=== PATIENT | female | born 1965 | race Caucasian/White ===

== ENCOUNTER 2021-06-15 02:42 | Inpatient (IN) ==
--- NOTE | 2021-06-15 02:56 | DR.SOBA ---
HPI Time Seen Time Seen by Provider: 06/15/21 02:56 Complaints Chief Complaint Doctors Comments: 56 y/o female brought in via EMS for dyspnea. Had a choking episode few days ago, while eating a nut. [place] it went down her windpipe. Having worsening dyspnea tonight. + coughing. + chest pain - sharp, le ft anterior chest, constant, does not radiate. Worse with coughing, moving. Having low grade temp. + h/o COPD. COVID-19 Coronavirus risk:travel/contact w/high risk person: No Has patient experienced Coronavirus symptoms: Yes Coronavirus symptoms experienced: Fever, Coughing and Shortness of Breath Source History Provided: Patient and Family Member PMH PMH Past Medical History: COPD, Diabetes, Dyslipidemia and Hypertension Past Medical History Comment: RLS Surgical History: Cholecystectomy Family History History of Family Medical Conditions: No Social History Does patient currently use any type of tobacco product: No Have you used tobacco products in the last 12 months: No Does any household member use tobacco: No Do you use any recreational Drugs:: No Travel Risk Coronavirus risk:travel/contact w/high risk person: No Has patient experienced Coronavirus symptoms: Yes Coronavirus symptoms experienced: Fever, Coughing and Shortness of Breath ROS Review of Systems Constitutional: Chills, Fever and Weakness Eyes: No Symptoms Reported ENTM: No Symptoms Reported Respiratoy: Non-Productive Cough and Short of Breath Cardiovascular: Chest Pain Gastrointestinal/Abdominal: No Symptoms Reported Genitourinary: No Symptoms Reported Neurological: Weakness Musculoskeletal: No Symptoms Reported Integumentary: No Symptoms Reported Hematologic/Lymphatic: No Symptoms Reported Psychiatric: No Symptoms Reported All Other Systems: Reviewed and Negative PE Vital Signs Vitals: Temperature 98.7 F Pulse Rate [Right Brachial] 108 Pulse Rate [Left Brachial] 93 Pulse Rate 110 Respiratory Rate 17 Blood Pressure [Right Arm] 165/74 Blood Pressure [Left Arm] 130/71 Blood Pressure 192/116 O2 Sat by Pulse Oximetry 94 General Limitations: No Limitations General Appearance: Alert and In Distress (appears uncomfortable.) Head Head Exam: Normal Inspection Eyes Eye exam: Normal Appearance, PERRL and EOMI ENT ENT Exam: Normal Exam Neck Neck Exam: Normal Inspection Chest Chest Inspection: Tenderness (left anterior chest wall) Respiratory Respiratory Exam: Normal Lung Sounds Bilat and Respiratory Distress Respiratory Exam: Bilateral: Clear to Auscultation Cardiovascular Cardiovascular Exam: Regular Rate, Normal Rhythm and Normal Heart Sounds Abdominal Exam Abdominal Exam: Normal Inspection, Normal Bowel Sounds, Soft and Tenderness (left side) Extremities Extremities Exam: Normal Inspection and Full ROM; negative Edema Neurologic Neurological Exam: Alert, Oriented X3 and CN II-XII Intact; negative Motor Sensory Deficit Psychiatric Psychiatric Exam: Anxious Skin Skin Exam: Warm and Dry MDM Differential Diagnosis Differential Diagnosis: CHF, COPD, Hypertensive Emergency, Mycardial Infarction, Pneumonia and Pulmonary embolism Differential Diagnosis Comment:: aspiration pneumonia COURSE Treatment Treatment: 56 y/o female with COPD presents with respiratory distress, chest pain and elevated BP. + fever. Did choke while eating nuts few days ago. W/u initiated. Pt very difficult IV access. Respiratory obtained ABG - + hypoxia, no significant O2 retention. CXR - concerning for LLL pneumonia, pt is hurting on the left side of her chest. RNs unable to get IV. Central line placement attempted by me, R femoral (0 for 2), L femoral (0 for 2). Pt given IM Rocephin to start antibiotic coverage. Will give duoneb treatment. Will consult with surgery, Dr Davies, for line placement, pt interested in port a cath placement. Recommend admission for further treatment of her pneumonia/COPD. [id number] - RN able to get a line. Will add azithromycin 500 mg IV, solu-medrol 125 mg IV. ROR Labs Reviewed Laboratory Results Reviewed?: Yes Result Diagrams: 06/16/21 05:10 06/16/21 05:10 Laboratory: 06/15/21 15:45 Blood Blood Culture - Preliminary 06/15/21 15:35 Blood Blood Culture - Preliminary WBC 15.7 X10^3/uL (3.6-10.0) H 06/16/21 05:10 RBC 3.98 X10^6/uL (3.5-5.4) 06/16/21 05:10 Hgb 12.1 g/dL (12.0-16.0) 06/16/21 05:10 Hct 35.4 % (36.0-47.0) L 06/16/21 05:10 MCV 88.8 fL (80.0-100.0) 06/16/21 05:10 MCH 30.4 pg (27.0-34.0) 06/16/21 05:10 MCHC 34.2 g/dL (33.0-35.0) 06/16/21 05:10 RDW 13.4 % (11.6-16.5) 06/16/21 05:10 Plt Count 214 X10^3/uL (150.0-450.0) 06/16/21 05:10 MPV 8.5 fL (7.4-11.0) 06/16/21 05:10 Neut % (Auto) 73.1 % (42.0-75.0) 06/16/21 05:10 Lymph % (Auto) 16.5 % (21.0-51.0) L 06/16/21 05:10 Moody % (Auto) 10.0 % (0.0-13.0) 06/16/21 05:10 Eos % (Auto) 0.1 % (0.9-2.9) L 06/16/21 05:10 Baso % (Auto) 0.3 % (0.2-1.0) 06/16/21 05:10 Neut # (Auto) 11.5 x10^3/uL (2.2-4.8) H 06/16/21 05:10 Lymph # (Auto) 2.6 X10^3/uL (1.3-2.9) 06/16/21 05:10 Moody # (Auto) 1.6 x10^3/uL (0.3-0.8) H 06/16/21 05:10 Eos # (Auto) 0.0 x10^3/uL (0.0-0.2) 06/16/21 05:10 Baso # (Auto) 0.0 X10^3/uL (0.0-0.1) 06/16/21 05:10 Absolute Nucleated RBC 0.0 /100WBC 06/16/21 05:10 Sample Site Lrad 06/15/21 03:10 ABG pH 7.400 (7.35-7.45) 06/15/21 03:10 ABG pCO2 46.0 mmHg (35.0-45.0) H 06/15/21 03:10 ABG pO2 63.0 mmHg (80.0-100.0) L 06/15/21 03:10 ABG HCO3 28.5 mmol/L (22-26) H 06/15/21 03:10 ABG O2 Saturation 92.0 % (90-100) 06/15/21 03:10 ABG Base Excess 3.1 mmol/L (-2.0-2.0) H 06/15/21 03:10 Randall Test Pos 06/15/21 03:10 A-a Gradient 136.0 mmHg 06/15/21 03:10 FiO2 36.0 06/15/21 03:10 Blood Gas Comments Baljeet well ms/mt 06/15/21 03:10 Sodium 132 mmol/L (136-145) L 06/16/21 05:10 Corrected Sodium 135 mmol/L (136-145) L 06/16/21 05:10 Potassium 3.5 mmol/L (3.5-5.1) 06/16/21 05:10 Chloride 98 mmol/L (98-107) 06/16/21 05:10 Carbon Dioxide 28.6 mmol/L (21-32) 06/16/21 05:10 BUN 12 mg/dL (7-18) 06/16/21 05:10 Creatinine 0.64 mg/dL (0.55-1.02) 06/16/21 05:10 Est GFR (MDRD) Af Amer > 60 (>60) 06/16/21 05:10 Est GFR (MDRD) Non-Af > 60 (>60) 06/16/21 05:10 Glucose 242 mg/dL (65-99) H 06/16/21 05:10 POC Glucose (mg/dL) 220 mg/dL (65-99) H 06/16/21 05:13 Calcium 8.9 mg/dL (8.5-10.1) 06/16/21 05:10 Corrected Calcium 10.2 mg/dL (8.5-10.1) H 06/16/21 05:10 Total Bilirubin 0.40 mg/dL (0.2-1.0) 06/16/21 05:10 AST 8 Units/L (15-37) L 06/16/21 05:10 ALT 11 Units/L (12-78) L 06/16/21 05:10 Alkaline Phosphatase 85 Units/L (46-116) 06/16/21 05:10 Creatine Kinase 38 Units/L (26-192) 06/15/21 03:32 CK-MB (CK-2) < 1.0 ng/mL (0-4.0) 06/15/21 03:32 CK/CKMB % Calc 2.6 % (<4) 06/15/21 03:32 Troponin I < 0.02 ng/mL (0-1.5) 06/15/21 03:32 B-Natriuretic Peptide 19.3 pg/mL (0-79) 06/15/21 03:32 Total Protein 7.2 g/dL (6.4-8.2) 06/16/21 05:10 Albumin 2.4 g/dL (3.4-5.0) L 06/16/21 05:10 Globulin 4.8 g/dL (2.5-4.5) H 06/16/21 05:10 Albumin/Globulin Ratio 0.5 Ratio (1.1-2.1) L 06/16/21 05:10 SARS-CoV-2 (PCR) Negative (NEGATIVE) 06/15/21 03:38 Influenza Type A (PCR) Negative (NEGATIVE) 06/15/21 03:38 Influenza Type B (PCR) Negative (NEGATIVE) 06/15/21 03:38 RSV (PCR) Negative (NEGATIVE) 06/15/21 03:38 Other Results Comments: ABG with pH of 7.4, pCO2 46, pO2 63. WBC 13K XRAY XRAY Interpreted by: Radiologist X-ray Results: development of LLL infiltrate EKG Rate: 104 [place]: LAD (-24) Rhythm: ST Block: None Hypertrophy: None ST: Nonsp Opioid Opioid Risk Tool Total: 0 Total Score Risk Category: Low Risk Copyright: Bal WELDON predicting aberrant behaviors Diagnosis Discharge Problem: LLL pneumonia Qualifiers: Pneumonia type: due to unspecified organism Qualified Code(s): J18.9 - Pneumonia, unspecified organism COPD (chronic obstructive pulmonary disease) Qualifiers: COPD type: COPD with acute exacerbation Qualified Code(s): J44.1 - Chronic obstructive pulmonary disease with (acute) exacerbation
[2021-06-15 03:14] LABS: ABG ALLEN TEST POS; ABG BASE EXCESS 3.1 mmol/L (-2.0-2.0); ABG HCO3 28.5 mmol/L (22-26)
[2021-06-15] MEDS ORDERED: TYLENOL 500 MG TAB EXTRA STRENGTH PO ONE ×2 (03:45→03:47)
--- NOTE | 2021-06-15 04:08 | RAD ---
PROCEDURE: Chest X-ray 1 View .HISTORY: Dyspnea.TECHNIQUE: AP view .COMPARISON: 11/23/2016.TECHNICAL QUALITY: Satisfactory .FINDINGS:Heart size upper limits of normal.Mediastinum and hilar regions show no masses or lymphadenopathy .Normal central vascularity .Some increased density left lung base could represent pneumonia. Remainder of the lung portillo are clear with no pleural fluid.No acute bony abnormality .IMPRESSION:1. Possible pneumonia left base and follow-up films may be helpful.2. Heart size upper limits of normal.Electronically signed by: Oscar Ospina (Jun 15, 2021 04:07:20)
[2021-06-15 04:17] LABS: BASOPHILS # (AUTO) 0.1 X10^3/uL (0.0-0.1); BASOPHILS % (AUTO) 0.5 % (0.2-1.0); EOSINOPHILS # (AUTO) 0.2 x10^3/uL (0.0-0.2); EOSINOPHILS % (AUTO) 1.4 % (0.9-2.9); HEMOGLOBIN 13.8 g/dL (12.0-16.0); LYMPHOCYTES # (AUTO) 2.3 X10^3/uL (1.3-2.9); LYMPHOCYTES % (AUTO) 16.6 % (21.0-51.0); MEAN CORPUSCULAR HEMOGLOBIN 30.6 pg (27.0-34.0); MEAN CORPUSCULAR HGB CONC 34.4 g/dL (33.0-35.0); MEAN PLATELET VOLUME 8.6 fL (7.4-11.0); MONOCYTES # (AUTO) 1.1 x10^3/uL (0.3-0.8); MONOCYTES % (AUTO) 8.2 % (0.0-13.0); NEUTROPHILS % (AUTO) 73.3 % (42.0-75.0); PLATELET COUNT 236 X10^3/uL (150.0-450.0); RED CELL DISTRIBUTION WIDTH 13.3 % (11.6-16.5); WHITE BLOOD COUNT 13.7 X10^3/uL (3.6-10.0)
[2021-06-15 04:53] LABS: ALANINE AMINOTRANSFERASE 14 Units/L (12-78); ALBUMIN 3.2 g/dL (3.4-5.0); ALKALINE PHOSPHATASE 121 Units/L (46-116); ASPARTATE AMINO TRANSFERASE 19 Units/L (15-37); BLOOD UREA NITROGEN 10 mg/dL (7-18); CALCIUM 8.8 mg/dL (8.5-10.1); CARBON DIOXIDE 26.7 mmol/L (21-32); CHLORIDE 99 mmol/L (98-107); CKMB % 2.6 % (<4); COR CA(FOR HYPOALB) 9.4 mg/dL (8.5-10.1); COR NA(FOR HYPERGLY) 137 mmol/L (136-145); CREATINE KINASE 38 Units/L (26-192); CREATINE KINASE MB < 1.0 ng/mL (0-4.0); CREATININE 0.44 mg/dL (0.55-1.02); SODIUM 133 mmol/L (136-145); TOTAL PROTEIN 7.6 g/dL (6.4-8.2); eGFR NON BLACK RACES > 60 (>60)
[2021-06-15] MEDS ORDERED: ROCEPHIN VIAL 1 GRAM IM ONE (06:29)
[2021-06-15] MEDS ORDERED: ROCEPHIN VIAL 1 GRAM ONE (06:30)
[2021-06-15] MEDS ORDERED: XYLOCAINE 1 % (PLAIN) ONE (06:30)
[2021-06-15] MEDS ORDERED: DUONEB 0.5 MG/3 MG (3 mL) NEB ONE (06:57)
[2021-06-15] MEDS ORDERED: ZITHROMAX INJ 500 MG VIAL 500 MG in NS 250 ML IV 250 ML IV SCH ×2 (07:33→08:14)
[2021-06-15] MEDS ORDERED: ZITHROMAX INJ 500 MG VIAL IV ONE (07:48)
[2021-06-15] MEDS ORDERED: NS 250 ML IV 250 ML IV ONE ×2 (07:48→07:54)
[2021-06-15] MEDS ORDERED: SOLU-Medrol 125 MG VIAL IVP ONE (07:57)
[2021-06-15] MEDS ORDERED: SOLU-Medrol 125 MG VIAL ONE (08:08)
[2021-06-15] MEDS ORDERED: MORPHINE SULFATE INJ 4 MG IVP PRN (08:14)
[2021-06-15] MEDS ORDERED: DUONEB 0.5 MG/3 MG (3 mL) NEB SCH (09:00)
[2021-06-15] MEDS ORDERED: ZANAFLEX PO PRN (09:58)
[2021-06-15] MEDS ORDERED: ASPIRIN EC 81 MG PO SCH (09:58)
[2021-06-15] MEDS ORDERED: PRAVACHOL PO SCH (09:58)
[2021-06-15] MEDS ORDERED: LACOSAMIDE 100 MG PO SCH (09:58)
[2021-06-15] MEDS ORDERED: AMARYL TAB 4 MG PO SCH (09:58)
[2021-06-15] MEDS ORDERED: KEPPRA TAB 500 MG PO SCH (09:58)
[2021-06-15] MEDS ORDERED: TOPROL XL PO SCH (09:58)
[2021-06-15] MEDS ORDERED: NEURONTIN TAB 600 MG PO SCH (09:58)
[2021-06-15] MEDS ORDERED: NITROSTAT SL PRN (10:07)
[2021-06-15] MEDS: LACOSAMIDE 100 MG PO SCH ×2 (11:14→20:48)
[2021-06-15] MEDS: AMARYL TAB 4 MG PO SCH ×2 (11:15→20:48)
[2021-06-15] MEDS: ASPIRIN EC 81 MG PO SCH (11:15)
[2021-06-15] MEDS: FORTAZ or TAZICEF VIAL INJ 1 G in NS 100 ML IV + SPIKE MINIBAG* 100 ML IV SCH ×3 (11:16→21:00)
[2021-06-15] MEDS: DILANTIN CAP 100 MG EXT REL PO SCH ×3 (11:16→21:00)
[2021-06-15] MEDS: NEURONTIN TAB 600 MG PO SCH ×2 (11:16→20:50)
[2021-06-15] MEDS: KEPPRA TAB 500 MG PO SCH ×2 (11:16→20:51)
[2021-06-15] MEDS: LEVAQUIN PREMIX IV 500 MG 500 MG/100 ML BAG IV SCH (11:16)
[2021-06-15] MEDS: PRAVACHOL PO SCH (11:17)
[2021-06-15] MEDS: TOPROL XL PO SCH ×2 (11:17→20:49)
--- NOTE | 2021-06-15 11:50 | RAD ---
CHEST, 1 VIEWHISTORY: Central line placementStudy: Single view of the chest.Comparison: 06/15/2021Findings:No change in the appearance of cardiopulmonary structures. A left central catheter terminates over the expected area of the SVC.IMPRESSION:1.No change in the appearance of cardiopulmonary structures.2. A left central catheter terminating over the expected area of the SVC.Electronically signed by: MONY BUENO (Jun 15, 2021 11:49:02)
[2021-06-15] MEDS: NovoLIN R (or HumuLIN R) SUBCUT PRN ×3 (12:24→20:54)
--- NOTE | 2021-06-15 12:27 | DR.OPNOTE ---
OP NOTE Pre-Op Diagnosis: Bronchopneumonia, need for central venous access Post-Op Diagnosis: same Procedure Date Date Of Procedure: 06/15/21 Procedure: Th e patient was placed in Trendelenburg position after appropriate consent was given for placement of a left subclavian vein triple Lumen catheter. I discussed the risk of bleeding, infection, and pneumothorax with the patient and her family and they agree to proceed. The left chest wall prepped and draped in sterile fashion. The skin underlying the left clavicle was infiltrated with 1% Xylocaine . Xylocaine also also used to infiltrate in the left chest wall. 16 gauge needle used to pu ncture the left subclavian vein and a guide wire place without difficulty. Incision made over the guide wire in the dilator placed over the guide wire. Triple lumen catheter the placed over the guide wire and the guide wire removed. The catheter had all the ports aspirated of blood and flushed with heparinized saline. Bio-patch placed over the catheter as it exited from the skin. It was secured to the skin with interrupted silk sutures . Post-procedure chest x-ray showed good placement of the central venous line and no pneumothorax. Type of Anesthesia: Local Anesthesia Comment: 6 cc of 1 % Xylocaine Findings: as above EBL: minimal Complications:: ryan Needle/Sponge Count:: correct Disposition/Condition: Pt. tolerated procedure without difficulty.
[2021-06-15 12:40] VITALS: BMI 37.8
[2021-06-15] MEDS: DUONEB 0.5 MG/3 MG (3 mL) NEB SCH ×3 (13:04→20:25)
[2021-06-15] MEDS ORDERED: DILANTIN CAP 100 MG EXT REL PO SCH (14:00)
[2021-06-15] MEDS ORDERED: REQUIP PO SCH (14:00)
[2021-06-15] MEDS: REQUIP PO SCH ×2 (14:27→21:00)
[2021-06-15] MEDS: SOLU-Medrol 40 MG VIAL IVP SCH ×2 (14:27→21:00)
--- NOTE | 2021-06-15 15:29 | DR.H&P ---
H&P - History & Physical for Day of: H&P Date: 06/15/21 - Chief Complaint Chief Complaint: COUGH, SHORT OF BREATH, FEVER, CHEST PAIN - History of Present Illness History of Present Illness: IS A 56 YEAR OLD WHITE FEMALE. SHE PRESENTED TO THE ER WITH REPORTS OF SHORTNESS OF BREATH, COUGH, FEVER, AND CHEST PAIN. SHE DESCRIBES PAIN SHARP, CONSTANT, AND RATES IT A 4/10. SHE ALSO ADMITS TO [place] ON A PECAN TWO DAYS AGO. HER PMH INCLUDES: COPD, DIABETES, DYSLIPIDEMIA, HTN, AND RLS. ON ARRIVAL TO THE ER, VITALS WERE 102.5-109-30-94%-192/116. LABS WERE OBTAINED. ABNORMAL LAB VALUES INCLUDE THE FOLLOWING: WBC 13.7, SODIUM 133, CREATININE 0.44, GLUCOSE 254, ALK PHOS 121, ALBUMIN 3.2. AN ABG WAS OBTAINED AND REVEALED: PH 7.400, PC02 46, P02 63, HC03 28.5, 02 SAT 92, BASE EXCESS 3.1, FI02 36. COVID, INFLUENZA, AND RSV NEGATIVE. BLOOD AND SPUTUM CULTURES WERE SET UP. A CHEST XRAY WAS OBTAINED AND REVEALED: 1. Possible pneumonia left base. 2. Heart size upper limits of normal. AN EKGS WAS OBTAINED AND REVEALED: SINUS TACHYCARDIA WITH HR 104. IN THE ER, SHE WAS GIVEN TYLENOL 1G PO X 1, ROCEPHIN 1G IM X 1, DUONEB X 1 DOSE, ZITHROMAX 500MG IV X 1 DOSE, SOLU-MEDROL 125MG IV X 1. SHE WAS ADMITTED TO THE HOSPITAL FOR FURTHER EVALUATION AND TREATMENT OF LLL PNEUMONIA AND COPD EXACERBATION. SHE WAS STARTED ON FORTAZ 1G IV Q8H, LEVAQUIN 500MG IV X 1, SOLU-MEDROL 40MG IV Q8H, DUONEB Q4H, PULMICORT BID, MORPHINE 4MG IV Q4H PRN, OTBS ACHS, HUMULIN R SLIDING SCALE, AND HER HOME MEDICATONS WERE RESUMED. OTHERWISE, WE WILL FOLLOW UP WITH AM LABS AND CHEST XRAY AND CONTINUE TO MONITOR. TIME SPENT ON CLINICAL ASSESSMENT, REVIEWING LABS AND IMAGING, DECISION MAKING, AND DOCUMENTATION WAS GREATER THAN 45 MINUTES. - Past Medical History Past Medical History: Hypertension, Dyslipidemia, Diabetes, COPD Additional Medical History: RLS - Past Surgical History Surgical History: Hysterectomy - Family History Family Medical History: Diabetes Mellitus, Cancer, Coronary Artery Disease - Social History Does patient currently use any type of tobacco product: No Have you used tobacco products in the last 12 months: No Type of Tobacco Use: None Does any household member use tobacco: No Alcohol Use: None Drug Use: None - Medications Home Medications: egg Allergy (Verified 06/15/21 03:36) shellfish derived Allergy (Verified 06/15/21 03:36) CONTINUE taking the following medications aspirin [Aspir-81] 81 mg PO DAILY 06/15/21 [History] cholestyramine-aspartame [Cholestyramine Light] 4 ea PO BID 06/15/21 [History] dulaglutide [Trulicity] 1.5 mg SUBCUT QWEEK 06/15/21 [History] gabapentin 600 mg PO BID 06/15/21 [History] glimepiride 4 mg PO BID 06/15/21 [History] insulin detemir U-100 [Levemir U-100 Insulin] 45 unit SUBCUT PRN PRN 06/15/21 [History] lacosamide [Vimpat] 100 mg PO BID 06/15/21 [History] levetiracetam 1,000 mg PO BID 06/15/21 [History] metoprolol succinate 50 mg PO BID 06/15/21 [History] nitroglycerin 0.3 mg SUBLINGUAL PRN PRN 06/15/21 [History] phenytoin sodium extended 100 mg PO TID 06/15/21 [History] pravastatin 20 mg PO DAILY 06/15/21 [History] ropinirole 0.25 mg PO TID 06/15/21 [History] tizanidine 4 mg PO TID 06/15/21 [History] - Review of Systems Constitutional: Fever, Weakness Eyes: No Symptoms Reported ENT: No Symptoms Reported Respiratory: Cough, Shortness of Breath, SOB with Excertion, Wheezing Cardiovascular: No Symptoms Reported Gastrointestinal: No Symptoms Reported Genitourinary: No Symptoms Reported Musculoskeletal: No Symptoms Reported Skin: No Symptoms Reported Neurological: Weakness - Physical Exam Vital Signs: Temperature 98.9 F Pulse Rate [Right Brachial] 108 Pulse Rate [Left Brachial] 98 Pulse Rate 78 Respiratory Rate 26 Blood Pressure [Right Arm] 168/94 Blood Pressure [Left Arm] 138/72 Blood Pressure 192/116 O2 Sat by Pulse Oximetry 97 Oriented: Normal Eyes: Normal Ear: Normal Nose: Normal Throat: Normal Respiratory: Wheezes Throughout Cardiovascular: Tachycardia : Normal Auscultation: Bowel Sounds: Normal Palpation: Normal Tenderness: Normal Skin: Normal Musculoskeletal: Normal Psychiatric: Normal Mood Description: Calm Affect: Normal Speech Pattern: Clear - Assessment/Plan (1) LLL pneumonia Qualifiers: Pneumonia type: due to unspecified organism Qualified Code(s): J18.9 - Pneumonia, unspecified organism Status: Acute Plan: ADMIT, SUPPLEMENTAL OXYGEN, FORTAZ 1G IV Q8H, LEVAQUIN 500MG IV X 1, SOLU- MEDROL 40MG IV Q8H, DUONEB Q4H, PULMICORT BID, MORPHINE 4MG IV Q4H PRN, OTBS ACHS, HUMULIN R SLIDING SCALE, RESUME HOME MEDS (2) COPD (chronic obstructive pulmonary disease) Qualifiers: COPD type: COPD with acute exacerbation Qualified Code(s): J44.1 - Chronic obstructive pulmonary disease with (acute) exacerbation Status: Acute - Allergies Allergies/Adverse Reactions: Allergies Allergy/AdvReac Type Severity Reaction Status Date / Time egg Allergy Verified 06/15/21 03:36 shellfish derived Allergy Verified 06/15/21 03:36
[2021-06-15] MEDS ORDERED: SNACK - Diabetic Appropriate PO SCH (20:00)
[2021-06-15] MEDS: PULMICORT NEB TX 0.5 MG NEB SCH (20:25)
[2021-06-15] MEDS: SNACK - Diabetic Appropriate PO SCH (20:47)
[2021-06-15] MEDS: QUESTRAN POWDER FOR ORAL SUSP PO SCH (20:57)
[2021-06-15] MEDS: TYLENOL 325 MG TAB PO PRN (22:13)
[2021-06-16] MEDS: DUONEB 0.5 MG/3 MG (3 mL) NEB SCH ×6 (00:53→20:42)
--- NOTE | 2021-06-16 05:37 | RAD ---
PROCEDURE: Chest X-ray 1 View .HISTORY: Dyspnea.TECHNIQUE: AP view .COMPARISON: 06/15/2021.TECHNICAL QUALITY: Satisfactory .FINDINGS:Unchanged cardio mediastinal silhouette and normal central vascularity.Consolidation left mid lower lung field consistent with pneumonia similar to increased compared to previous study. Right lung portillo predominantly clear with no pleural fluid or consolidation.IMPRESSION:Unchanged increased left basilar pneumonia.Electronically signed by: Oscar Ospina (Jun 16, 2021 05:36:24)
[2021-06-16] MEDS: FORTAZ or TAZICEF VIAL INJ 1 G in NS 100 ML IV + SPIKE MINIBAG* 100 ML IV SCH ×3 (05:44→21:34)
[2021-06-16] MEDS: DILANTIN CAP 100 MG EXT REL PO SCH ×3 (05:44→21:34)
[2021-06-16] MEDS: NovoLIN R (or HumuLIN R) SUBCUT PRN ×4 (05:45→21:35)
[2021-06-16] MEDS: SOLU-Medrol 40 MG VIAL IVP SCH ×3 (05:45→21:35)
[2021-06-16] MEDS: REQUIP PO SCH ×3 (05:45→21:34)
[2021-06-16 06:12] LABS: BASOPHILS % (AUTO) 0.3 % (0.2-1.0); EOSINOPHILS % (AUTO) 0.1 % (0.9-2.9); HEMATOCRIT 35.4 % (36.0-47.0); HEMOGLOBIN 12.1 g/dL (12.0-16.0); LYMPHOCYTES # (AUTO) 2.6 X10^3/uL (1.3-2.9); LYMPHOCYTES % (AUTO) 16.5 % (21.0-51.0); MEAN CORPUSCULAR HEMOGLOBIN 30.4 pg (27.0-34.0); MEAN CORPUSCULAR HGB CONC 34.2 g/dL (33.0-35.0); MEAN CORPUSCULAR VOLUME 88.8 fL (80.0-100.0); MEAN PLATELET VOLUME 8.5 fL (7.4-11.0); MONOCYTES # (AUTO) 1.6 x10^3/uL (0.3-0.8); NEUTROPHILS # (AUTO) 11.5 x10^3/uL (2.2-4.8); NEUTROPHILS % (AUTO) 73.1 % (42.0-75.0); PLATELET COUNT 214 X10^3/uL (150.0-450.0); RED BLOOD COUNT 3.98 X10^6/uL (3.5-5.4); RED CELL DISTRIBUTION WIDTH 13.4 % (11.6-16.5); WHITE BLOOD COUNT 15.7 X10^3/uL (3.6-10.0)
[2021-06-16 06:25] LABS: ALANINE AMINOTRANSFERASE 11 Units/L (12-78); ALBUMIN 2.4 g/dL (3.4-5.0); ALKALINE PHOSPHATASE 85 Units/L (46-116); ASPARTATE AMINO TRANSFERASE 8 Units/L (15-37); BLOOD UREA NITROGEN 12 mg/dL (7-18); CALCIUM 8.9 mg/dL (8.5-10.1); CARBON DIOXIDE 28.6 mmol/L (21-32); CHLORIDE 98 mmol/L (98-107); COR CA(FOR HYPOALB) 10.2 mg/dL (8.5-10.1); COR NA(FOR HYPERGLY) 135 mmol/L (136-145); CREATININE 0.64 mg/dL (0.55-1.02); SODIUM 132 mmol/L (136-145); TOTAL PROTEIN 7.2 g/dL (6.4-8.2); eGFR NON BLACK RACES > 60 (>60)
[2021-06-16] MEDS: PULMICORT NEB TX 0.5 MG NEB SCH ×2 (08:55→20:45)
[2021-06-16] MEDS: LEVAQUIN PREMIX IV 500 MG 500 MG/100 ML BAG IV SCH (09:05)
[2021-06-16] MEDS: PRAVACHOL PO SCH (09:05)
[2021-06-16] MEDS: TOPROL XL PO SCH ×2 (09:06→21:34)
[2021-06-16] MEDS: ASPIRIN EC 81 MG PO SCH (09:06)
[2021-06-16] MEDS: NEURONTIN TAB 600 MG PO SCH ×2 (09:06→21:33)
[2021-06-16] MEDS: KEPPRA TAB 500 MG PO SCH ×2 (09:06→21:33)
[2021-06-16] MEDS: AMARYL TAB 4 MG PO SCH ×2 (09:06→21:33)
[2021-06-16] MEDS: LACOSAMIDE 100 MG PO SCH ×2 (09:07→21:33)
[2021-06-16] MEDS: QUESTRAN POWDER FOR ORAL SUSP PO SCH ×2 (09:13→21:34)
[2021-06-16] MEDS: LOVENOX INJ 40 MG SYR SC SCH (11:43)
[2021-06-16] MEDS: TYLENOL 325 MG TAB PO PRN (11:48)
[2021-06-16] MEDS: SNACK - Diabetic Appropriate PO SCH (21:29)
[2021-06-16] MEDS: ELAVIL PO SCH (21:33)
[2021-06-16] MEDS: ZANAFLEX PO PRN (22:30)
[2021-06-17] MEDS: DUONEB 0.5 MG/3 MG (3 mL) NEB SCH ×6 (00:25→20:07)
[2021-06-17] MEDS: DILANTIN CAP 100 MG EXT REL PO SCH ×3 (05:50→21:10)
[2021-06-17] MEDS: SOLU-Medrol 40 MG VIAL IVP SCH ×3 (05:50→21:10)
[2021-06-17] MEDS: FORTAZ or TAZICEF VIAL INJ 1 G in NS 100 ML IV + SPIKE MINIBAG* 100 ML IV SCH ×3 (05:50→21:10)
[2021-06-17] MEDS: REQUIP PO SCH ×3 (05:50→21:10)
[2021-06-17] MEDS: NovoLIN R (or HumuLIN R) SUBCUT PRN ×3 (05:51→20:24)
[2021-06-17 06:45] LABS: BASOPHILS % (AUTO) 0.3 % (0.2-1.0); EOSINOPHILS % (AUTO) 0.1 % (0.9-2.9); HEMATOCRIT 33.1 % (36.0-47.0); HEMOGLOBIN 11.1 g/dL (12.0-16.0); LYMPHOCYTES # (AUTO) 2.4 X10^3/uL (1.3-2.9); LYMPHOCYTES % (AUTO) 17.4 % (21.0-51.0); MEAN CORPUSCULAR HEMOGLOBIN 30.2 pg (27.0-34.0); MEAN CORPUSCULAR HGB CONC 33.7 g/dL (33.0-35.0); MEAN CORPUSCULAR VOLUME 89.7 fL (80.0-100.0); MEAN PLATELET VOLUME 8.4 fL (7.4-11.0); MONOCYTES # (AUTO) 1.3 x10^3/uL (0.3-0.8); MONOCYTES % (AUTO) 9.1 % (0.0-13.0); NEUTROPHILS % (AUTO) 73.1 % (42.0-75.0); PLATELET COUNT 230 X10^3/uL (150.0-450.0); RED BLOOD COUNT 3.69 X10^6/uL (3.5-5.4); RED CELL DISTRIBUTION WIDTH 13.2 % (11.6-16.5); WHITE BLOOD COUNT 13.7 X10^3/uL (3.6-10.0)
[2021-06-17 07:06] LABS: ALANINE AMINOTRANSFERASE 11 Units/L (12-78); ALBUMIN 2.3 g/dL (3.4-5.0); ALKALINE PHOSPHATASE 87 Units/L (46-116); ASPARTATE AMINO TRANSFERASE 16 Units/L (15-37); BLOOD UREA NITROGEN 12 mg/dL (7-18); CALCIUM 8.9 mg/dL (8.5-10.1); CARBON DIOXIDE 30.1 mmol/L (21-32); CHLORIDE 99 mmol/L (98-107); COR CA(FOR HYPOALB) 10.3 mg/dL (8.5-10.1); COR NA(FOR HYPERGLY) 139 mmol/L (136-145); CREATININE 0.67 mg/dL (0.55-1.02); SODIUM 136 mmol/L (136-145); TOTAL PROTEIN 7.3 g/dL (6.4-8.2); eGFR NON BLACK RACES > 60 (>60)
--- NOTE | 2021-06-17 07:13 | RAD ---
HISTORYSOBSTUDYCHEST, 1 GEUAFYYOLGNZYD01/04/2022.TECHNIQUEAP view of the chestFINDINGSLeft subclavian central line is in good position. Worsened opacification of the left dion thorax with ipsilateral shift of the heart. Mild right base hazy opacity appears similar to prior. No pneumothorax.IMPRESSIONWorsened left dion thorax opacification with an atelectatic component given mild ipsilateral shift of the heart.Electronically signed by: Nick Lee (Jun 17, 2021 07:11:36)
[2021-06-17] MEDS: PULMICORT NEB TX 0.5 MG NEB SCH ×2 (08:50→20:07)
[2021-06-17] MEDS: LEVAQUIN PREMIX IV 500 MG 500 MG/100 ML BAG IV SCH (09:24)
[2021-06-17] MEDS: TOPROL XL PO SCH ×2 (09:26→20:23)
[2021-06-17] MEDS: ASPIRIN EC 81 MG PO SCH (09:26)
[2021-06-17] MEDS: PRAVACHOL PO SCH (09:27)
[2021-06-17] MEDS: AMARYL TAB 4 MG PO SCH ×2 (09:27→20:22)
[2021-06-17] MEDS: NEURONTIN TAB 600 MG PO SCH ×2 (09:27→20:23)
[2021-06-17] MEDS: KEPPRA TAB 500 MG PO SCH ×2 (09:28→20:22)
[2021-06-17] MEDS: LACOSAMIDE 100 MG PO SCH ×2 (09:42→20:22)
[2021-06-17] MEDS: LOVENOX INJ 40 MG SYR SC SCH (09:42)
[2021-06-17] MEDS: QUESTRAN POWDER FOR ORAL SUSP PO SCH ×2 (09:42→20:23)
--- NOTE | 2021-06-17 12:36 | PCM.PROG ---
Progress Note - Progress Note for Day of Date of Exam: 06/16/21 - Subjective Subjective: WAS ADMITTED FOR TREATMENT OF LLL PNEUMONIA AND COPD EXACERBATION. TODAY, SHE IS ALERT AND ORIENTED, LYING IN BED ON MORNING ROUNDS. SHE CONTINUES WITH COMPLAINTS OF SHORTNESS OF BREATH AND COUGH. COUGH HAS BEEN NON-PRODUCTIVE. SHE ALSO REPORTS A DULL HEADACHE THIS MORNING AND THROUGHOUT THE NIGHT. ON EXAMINATION, HEART IS REGULAR IN RATE AND RHYTHM. BILATERAL LUNGS ARE NOTED WITH WHEEZING THROUGHOUT. ABDOMEN IS ROUND, SOFT, AND NON-TENDER WITH NORMAL BOWEL SOUNDS NOTED IN ALL QUADRANTS. HER VITALS THIS MORNING ARE: 99.3-100-22-91%-146/78. SHE HAS HAD FEVER THROUGHOUT THE NIGHT. LABS WERE OBTAINED. ABNORMAL LAB VALUES INCLUDE THE FOLLOWING: WBC 15.7, HCT 35.4, SODIUM 132, GLUCOSE 242, AST 8, ALT 11, ALBUMIN 2.4, GLOBULIN 4.8. BLOOD CULTURES ARE PENDING. CHEST XRAY WAS OBTAINED AND REVEALED: Unchanged increased left basilar pneumonia. SHE IS CURRENTLY RECEIVING FORTAZ 1G IV Q8H, LEVAQUIN 500MG IV X 1, SOLU-MEDROL 40MG IV Q8H, DUONEB Q4H, PULMICORT BID, MORPHINE 4MG IV Q4H PRN, OTBS ACHS, HUMULIN R SLIDING SCALE, AND HER HOME MEDICATONS WERE RESUMED. TODAY, WE WILL ADD AMITRIPTYLINE 25MG PO HS FOR HEADACHES. OTHERWISE, WE WILL CONTINUE WITH CURRENT PLAN OF CARE. WE PLAN TO FOLLOW UP WITH AM LABS AND CHEST XRAY AND CONTINUE TO MONITOR. TIME SPENT ON CLINICAL ASSESSMENT, REVIEWING LABS AND IMAGING, DECISION MAKING, AND DOCUMENTATION GREATER THAN 45 MINUTES. - Past Medical Family Social History Past Med/Fam/Surg Hx: No changes since H&P Allergies: Allergies egg Allergy (Verified 06/15/21 03:36) shellfish derived Allergy (Verified 06/15/21 03:36) - Review of Systems ROS: No change since H&P - Vital Signs and I&O's Vital Signs: Temperature 100.0 F Pulse Rate [Right Brachial] 108 Pulse Rate [Left Brachial] 109 Pulse Rate 102 Respiratory Rate 34 Blood Pressure [Right Arm] 169/97 Blood Pressure [Left Arm] 157/76 Blood Pressure 192/116 O2 Sat by Pulse Oximetry 90 Intake and Output: Intake & Output 06/15/21 06/16/21 06/17/21/06/22 11:59 11:59 11:59 11:59 Intake Total 2050 Balance 2050 - Physical Exam Oriented: Normal Eyes: Normal Ear: Normal Nose: Normal Throat: Normal Respiratory: Diminished, Wheezes Cardiovascular: Normal : Normal Auscultation: Bowel Sounds: Normal Palpation: Normal Tenderness: Normal Skin: Normal Musculoskeletal: Normal Psychiatric: Normal Mood Description: Calm Affect: Normal Speech Pattern: Clear, Appropriate - Laboratory and Diagnostics Result Diagrams: 06/17/21 05:25 06/17/21 05:25 Labs: 06/15/21 15:45 Blood Blood Culture - Preliminary 06/15/21 15:35 Blood Blood Culture - Preliminary Laboratory WBC 13.7 X10^3/uL (3.6-10.0) H 06/17/21 05:25 RBC 3.69 X10^6/uL (3.5-5.4) 06/17/21 05:25 Hgb 11.1 g/dL (12.0-16.0) L 06/17/21 05:25 Hct 33.1 % (36.0-47.0) L 06/17/21 05:25 MCV 89.7 fL (80.0-100.0) 06/17/21 05:25 MCH 30.2 pg (27.0-34.0) 06/17/21 05:25 MCHC 33.7 g/dL (33.0-35.0) 06/17/21 05:25 RDW 13.2 % (11.6-16.5) 06/17/21 05:25 Plt Count 230 X10^3/uL (150.0-450.0) 06/17/21 05:25 MPV 8.4 fL (7.4-11.0) 06/17/21 05:25 Neut % (Auto) 73.1 % (42.0-75.0) 06/17/21 05:25 Lymph % (Auto) 17.4 % (21.0-51.0) L 06/17/21 05:25 [place] % (Auto) 9.1 % (0.0-13.0) 06/17/21 05:25 Eos % (Auto) 0.1 % (0.9-2.9) L 06/17/21 05:25 Baso % (Auto) 0.3 % (0.2-1.0) 06/17/21 05:25 Neut # (Auto) 10.0 x10^3/uL (2.2-4.8) H 06/17/21 05:25 Lymph # (Auto) 2.4 X10^3/uL (1.3-2.9) 06/17/21 05:25 [place] # (Auto) 1.3 x10^3/uL (0.3-0.8) H 06/17/21 05:25 Eos # (Auto) 0.0 x10^3/uL (0.0-0.2) 06/17/21 05:25 Baso # (Auto) 0.0 X10^3/uL (0.0-0.1) 06/17/21 05:25 Absolute Nucleated RBC 0.0 /100WBC 06/17/21 05:25 Sample Site Lrad 06/15/21 03:10 ABG pH 7.400 (7.35-7.45) 06/15/21 03:10 ABG pCO2 46.0 mmHg (35.0-45.0) H 06/15/21 03:10 ABG pO2 63.0 mmHg (80.0-100.0) L 06/15/21 03:10 ABG HCO3 28.5 mmol/L (22-26) H 06/15/21 03:10 ABG O2 Saturation 92.0 % (90-100) 06/15/21 03:10 ABG Base Excess 3.1 mmol/L (-2.0-2.0) H 06/15/21 03:10 Randall Test Pos 06/15/21 03:10 A-a Gradient 136.0 mmHg 06/15/21 03:10 FiO2 36.0 06/15/21 03:10 Blood Gas Comments [facility] well ms/mt 06/15/21 03:10 Sodium 136 mmol/L (136-145) 06/17/21 05:25 Corrected Sodium 139 mmol/L (136-145) 06/17/21 05:25 Potassium 4.2 mmol/L (3.5-5.1) 06/17/21 05:25 Chloride 99 mmol/L (98-107) 06/17/21 05:25 Carbon Dioxide 30.1 mmol/L (21-32) 06/17/21 05:25 BUN 12 mg/dL (7-18) 06/17/21 05:25 Creatinine 0.67 mg/dL (0.55-1.02) 06/17/21 05:25 Est GFR (MDRD) Af Amer > 60 (>60) 06/17/21 05:25 Est GFR (MDRD) Non-Af > 60 (>60) 06/17/21 05:25 Glucose 234 mg/dL (65-99) H 06/17/21 05:25 POC Glucose (mg/dL) 243 mg/dL (65-99) H 06/17/21 11:43 Calcium 8.9 mg/dL (8.5-10.1) 06/17/21 05:25 Corrected Calcium 10.3 mg/dL (8.5-10.1) H 06/17/21 05:25 Total Bilirubin 0.40 mg/dL (0.2-1.0) 06/17/21 05:25 AST 16 Units/L (15-37) 06/17/21 05:25 ALT 11 Units/L (12-78) L 06/17/21 05:25 Alkaline Phosphatase 87 Units/L (46-116) 06/17/21 05:25 Creatine Kinase 38 Units/L (26-192) 06/15/21 03:32 CK-MB (CK-2) < 1.0 ng/mL (0-4.0) 06/15/21 03:32 CK/CKMB % Calc 2.6 % (<4) 06/15/21 03:32 Troponin I < 0.02 ng/mL (0-1.5) 06/15/21 03:32 B-Natriuretic Peptide 17.2 pg/mL (0-79) 06/17/21 05:25 Total Protein 7.3 g/dL (6.4-8.2) 06/17/21 05:25 Albumin 2.3 g/dL (3.4-5.0) L 06/17/21 05:25 Globulin 5.0 g/dL (2.5-4.5) H 06/17/21 05:25 Albumin/Globulin Ratio 0.5 Ratio (1.1-2.1) L 06/17/21 05:25 SARS-CoV-2 (PCR) Negative (NEGATIVE) 06/15/21 03:38 Influenza Type A (PCR) Negative (NEGATIVE) 06/15/21 03:38 Influenza Type B (PCR) Negative (NEGATIVE) 06/15/21 03:38 RSV (PCR) Negative (NEGATIVE) 06/15/21 03:38 - Plan (1) LLL pneumonia Status: Acute Qualifiers: Pneumonia type: due to unspecified organism Qualified Code(s): J18.9 - Pneumonia, unspecified organism Plan: SUPPLEMENTAL OXYGEN, FORTAZ 1G IV Q8H, LEVAQUIN 500MG IV X 1, SOLU-MEDROL 40MG IV Q8H, DUONEB Q4H, PULMICORT BID, MORPHINE 4MG IV Q4H PRN, OTBS ACHS, HUMULIN R SLIDING SCALE, RESUME HOME MEDS (2) COPD (chronic obstructive pulmonary disease) Status: Acute Qualifiers: COPD type: COPD with acute exacerbation Qualified Code(s): J44.1 - Chronic obstructive pulmonary disease with (acute) exacerbation (3) Headache Status: Acute Qualifiers: Headache type: unspecified Headache chronicity pattern: chronic headache
--- NOTE | 2021-06-17 12:47 | PCM.PROG ---
Progress Note - Progress Note for Day of Date of Exam: 06/17/21 - Subjective Subjective: WAS ADMITTED FOR TREATMENT OF LLL PNEUMONIA AND COPD EXACERBATION. TODAY, SHE IS ALERT AND ORIENTED, LYING IN BED ON MORNING ROUNDS. SHE CONTINUES WITH COMPLAINTS OF SHORTNESS OF BREATH AND COUGH. COUGH HAS BEEN NON-PRODUCTIVE. SHE DOES ADMIT TO SLIGHT IMPROVEMENT IN SYMPTOMS SINCE ADMISSION. ON EXAMINATION, HEART IS REGULAR IN RATE AND RHYTHM. BILATERAL LUNGS ARE NOTED WITH WHEEZING THROUGHOUT. ABDOMEN IS ROUND, SOFT, AND NON-TENDER WITH NORMAL BOWEL SOUNDS NOTED IN ALL QUADRANTS. HER VITALS THIS MORNING ARE: 100.0-109-34-89%-169/97. SHE HAS HAD FEVER THROUGHOUT THE NIGHT. LABS WERE OBTAINED. ABNORMAL LAB VALUES INCLUDE THE FOLLOWING: WBC 13.7, HGB 11.1, HCT 33.1, GLUCOSE 234, ALT 11, ALBUMIN 2.3, GLOBULIN 5.0. BLOOD CULTURES ARE PENDING. CHEST XRAY WAS OBTAINED AND REVEALED: Worsened left dion thorax opacification with an atelectatic component given mild ipsilateral shift of the heart. SHE IS CURRENTLY RECEIVING FORTAZ 1G IV Q8H, LEVAQUIN 500MG IV X 1, SOLU-MEDROL 40MG IV Q8H, DUONEB Q4H, PULMICORT BID, MORPHINE 4MG IV Q4H PRN, OTBS ACHS, HUMULIN R SLIDING SCALE, AMITRIPTYLINE 25MG PO HS, AND HER HOME MEDICATONS WERE RESUMED. WE WILL CONTINUE WITH CURRENT PLAN OF CARE TODAY. OTHERWISE, WE PLAN TO FOLLOW UP WITH AM LABS AND CHEST XRAY AND CONTINUE TO MONITOR. TIME SPENT ON CLINICAL ASSESSMENT, REVIEWING LABS AND IMAGING, DECISION MAKING, AND DOCUMENTATION GREATER THAN 45 MINUTES. - Past Medical Family Social History Past Med/Fam/Surg Hx: No changes since H&P Allergies: Allergies egg Allergy (Verified 06/15/21 03:36) shellfish derived Allergy (Verified 06/15/21 03:36) - Review of Systems ROS: No change since H&P - Vital Signs and I&O's Vital Signs: Temperature 99.7 F Pulse Rate [Right Brachial] 108 Pulse Rate [Left Brachial] 115 Pulse Rate 102 Respiratory Rate 36 Blood Pressure [Right Arm] 168/81 Blood Pressure [Left Arm] 157/76 Blood Pressure 192/116 O2 Sat by Pulse Oximetry 95 Intake and Output: Intake & Output 06/15/21 06/16/21 06/17/21 06/18/21 11:59 11:59 11:59 11:59 Intake Total 2050 Balance 2050 - Physical Exam Oriented: Normal Eyes: Normal Ear: Normal Nose: Normal Throat: Normal Respiratory: Diminished, Wheezes Cardiovascular: Normal : Normal Auscultation: Bowel Sounds: Normal Tenderness: Normal Skin: Normal Musculoskeletal: Normal Psychiatric: Normal Mood Description: Calm Affect: Normal Speech Pattern: Clear, Appropriate - Laboratory and Diagnostics Result Diagrams: 06/17/21 05:25 06/17/21 05:25 Labs: 06/15/21 15:45 Blood Blood Culture - Preliminary 06/15/21 15:35 Blood Blood Culture - Preliminary Laboratory WBC 13.7 X10^3/uL (3.6-10.0) H 06/17/21 05:25 RBC 3.69 X10^6/uL (3.5-5.4) 06/17/21 05:25 Hgb 11.1 g/dL (12.0-16.0) L 06/17/21 05:25 Hct 33.1 % (36.0-47.0) L 06/17/21 05:25 MCV 89.7 fL (80.0-100.0) 06/17/21 05:25 MCH 30.2 pg (27.0-34.0) 06/17/21 05:25 MCHC 33.7 g/dL (33.0-35.0) 06/17/21 05:25 RDW 13.2 % (11.6-16.5) 06/17/21 05:25 Plt Count 230 X10^3/uL (150.0-450.0) 06/17/21 05:25 MPV 8.4 fL (7.4-11.0) 06/17/21 05:25 Neut % (Auto) 73.1 % (42.0-75.0) 06/17/21 05:25 Lymph % (Auto) 17.4 % (21.0-51.0) L 06/17/21 05:25 [place] % (Auto) 9.1 % (0.0-13.0) 06/17/21 05:25 Eos % (Auto) 0.1 % (0.9-2.9) L 06/17/21 05:25 Baso % (Auto) 0.3 % (0.2-1.0) 06/17/21 05:25 Neut # (Auto) 10.0 x10^3/uL (2.2-4.8) H 06/17/21 05:25 Lymph # (Auto) 2.4 X10^3/uL (1.3-2.9) 06/17/21 05:25 [place] # (Auto) 1.3 x10^3/uL (0.3-0.8) H 06/17/21 05:25 Eos # (Auto) 0.0 x10^3/uL (0.0-0.2) 06/17/21 05:25 Baso # (Auto) 0.0 X10^3/uL (0.0-0.1) 06/17/21 05:25 Absolute Nucleated RBC 0.0 /100WBC 06/17/21 05:25 Sample Site Lrad 06/15/21 03:10 ABG pH 7.400 (7.35-7.45) 06/15/21 03:10 ABG pCO2 46.0 mmHg (35.0-45.0) H 06/15/21 03:10 ABG pO2 63.0 mmHg (80.0-100.0) L 06/15/21 03:10 ABG HCO3 28.5 mmol/L (22-26) H 06/15/21 03:10 ABG O2 Saturation 92.0 % (90-100) 06/15/21 03:10 ABG Base Excess 3.1 mmol/L (-2.0-2.0) H 06/15/21 03:10 Randall Test Pos 06/15/21 03:10 A-a Gradient 136.0 mmHg 06/15/21 03:10 FiO2 36.0 06/15/21 03:10 Blood Gas Comments [facility] well ms/mt 06/15/21 03:10 Sodium 136 mmol/L (136-145) 06/17/21 05:25 Corrected Sodium 139 mmol/L (136-145) 06/17/21 05:25 Potassium 4.2 mmol/L (3.5-5.1) 06/17/21 05:25 Chloride 99 mmol/L (98-107) 06/17/21 05:25 Carbon Dioxide 30.1 mmol/L (21-32) 06/17/21 05:25 BUN 12 mg/dL (7-18) 06/17/21 05:25 Creatinine 0.67 mg/dL (0.55-1.02) 06/17/21 05:25 Est GFR (MDRD) Af Amer > 60 (>60) 06/17/21 05:25 Est GFR (MDRD) Non-Af > 60 (>60) 06/17/21 05:25 Glucose 234 mg/dL (65-99) H 06/17/21 05:25 POC Glucose (mg/dL) 243 mg/dL (65-99) H 06/17/21 11:43 Calcium 8.9 mg/dL (8.5-10.1) 06/17/21 05:25 Corrected Calcium 10.3 mg/dL (8.5-10.1) H 06/17/21 05:25 Total Bilirubin 0.40 mg/dL (0.2-1.0) 06/17/21 05:25 AST 16 Units/L (15-37) 06/17/21 05:25 ALT 11 Units/L (12-78) L 06/17/21 05:25 Alkaline Phosphatase 87 Units/L (46-116) 06/17/21 05:25 Creatine Kinase 38 Units/L (26-192) 06/15/21 03:32 CK-MB (CK-2) < 1.0 ng/mL (0-4.0) 06/15/21 03:32 CK/CKMB % Calc 2.6 % (<4) 06/15/21 03:32 Troponin I < 0.02 ng/mL (0-1.5) 06/15/21 03:32 B-Natriuretic Peptide 17.2 pg/mL (0-79) 06/17/21 05:25 Total Protein 7.3 g/dL (6.4-8.2) 06/17/21 05:25 Albumin 2.3 g/dL (3.4-5.0) L 06/17/21 05:25 Globulin 5.0 g/dL (2.5-4.5) H 06/17/21 05:25 Albumin/Globulin Ratio 0.5 Ratio (1.1-2.1) L 06/17/21 05:25 SARS-CoV-2 (PCR) Negative (NEGATIVE) 06/15/21 03:38 Influenza Type A (PCR) Negative (NEGATIVE) 06/15/21 03:38 Influenza Type B (PCR) Negative (NEGATIVE) 06/15/21 03:38 RSV (PCR) Negative (NEGATIVE) 06/15/21 03:38 - Plan (1) LLL pneumonia Status: Acute Qualifiers: Pneumonia type: due to unspecified organism Qualified Code(s): J18.9 - Pneumonia, unspecified organism Plan: SUPPLEMENTAL OXYGEN, FORTAZ 1G IV Q8H, LEVAQUIN 500MG IV X 1, SOLU-MEDROL 40MG IV Q8H, DUONEB Q4H, PULMICORT BID, MORPHINE 4MG IV Q4H PRN, OTBS ACHS, HUMULIN R SLIDING SCALE, RESUME HOME MEDS (2) COPD (chronic obstructive pulmonary disease) Status: Acute Qualifiers: COPD type: COPD with acute exacerbation Qualified Code(s): J44.1 - Chronic obstructive pulmonary disease with (acute) exacerbation (3) Headache Status: Acute Qualifiers: Headache type: unspecified Headache chronicity pattern: chronic headache
[2021-06-17] MEDS: TYLENOL 325 MG TAB PO PRN (13:54)
[2021-06-17] MEDS ORDERED: NS 1,000 ML IV 1,000 ML ONE (16:48)
[2021-06-17] MEDS: NS 1,000 ML IV 1,000 ML IV SCH (16:55)
[2021-06-17] MEDS: SNACK - Diabetic Appropriate PO SCH (20:22)
[2021-06-17] MEDS: ELAVIL PO SCH (20:22)
[2021-06-17] MEDS: ZANAFLEX PO PRN (20:24)
[2021-06-18] MEDS: DUONEB 0.5 MG/3 MG (3 mL) NEB SCH ×6 (00:22→20:20)
[2021-06-18] MEDS: FORTAZ or TAZICEF VIAL INJ 1 G in NS 100 ML IV + SPIKE MINIBAG* 100 ML IV SCH ×3 (05:39→22:11)
[2021-06-18] MEDS: DILANTIN CAP 100 MG EXT REL PO SCH ×3 (05:39→22:10)
[2021-06-18] MEDS: REQUIP PO SCH ×3 (05:39→22:11)
[2021-06-18] MEDS: SOLU-Medrol 40 MG VIAL IVP SCH ×3 (05:39→22:11)
--- NOTE | 2021-06-18 05:51 | RAD ---
PROCEDURE: Chest X-ray 1 View .HISTORY: Dyspnea.TECHNIQUE: AP view .COMPARISON: 06/17/2021.TECHNICAL QUALITY: Satisfactory .FINDINGS:Unchanged opacification of most of the left dion thorax with some aerated lung at the apex.Right lung portillo clear.IMPRESSION:Unchanged near total opacification of the left dion thorax.Electronically signed by: Oscar Ospina (Jun 18, 2021 05:50:07)
[2021-06-18 06:10] LABS: BASOPHILS # (AUTO) 0.1 X10^3/uL (0.0-0.1); BASOPHILS % (AUTO) 0.5 % (0.2-1.0); EOSINOPHILS # (AUTO) 0.1 x10^3/uL (0.0-0.2); EOSINOPHILS % (AUTO) 1.4 % (0.9-2.9); HEMATOCRIT 33.2 % (36.0-47.0); HEMOGLOBIN 11.3 g/dL (12.0-16.0); LYMPHOCYTES # (AUTO) 2.4 X10^3/uL (1.3-2.9); LYMPHOCYTES % (AUTO) 21.7 % (21.0-51.0); MEAN CORPUSCULAR HEMOGLOBIN 30.3 pg (27.0-34.0); MEAN CORPUSCULAR HGB CONC 33.9 g/dL (33.0-35.0); MEAN CORPUSCULAR VOLUME 89.4 fL (80.0-100.0); MEAN PLATELET VOLUME 8.1 fL (7.4-11.0); MONOCYTES # (AUTO) 1.4 x10^3/uL (0.3-0.8); MONOCYTES % (AUTO) 12.6 % (0.0-13.0); NEUTROPHILS # (AUTO) 7.1 x10^3/uL (2.2-4.8); NEUTROPHILS % (AUTO) 63.8 % (42.0-75.0); PLATELET COUNT 217 X10^3/uL (150.0-450.0); RED BLOOD COUNT 3.71 X10^6/uL (3.5-5.4); RED CELL DISTRIBUTION WIDTH 13.3 % (11.6-16.5); WHITE BLOOD COUNT 11.1 X10^3/uL (3.6-10.0)
[2021-06-18 06:32] LABS: ALANINE AMINOTRANSFERASE 27 Units/L (12-78); ALBUMIN 2.3 g/dL (3.4-5.0); ALKALINE PHOSPHATASE 95 Units/L (46-116); ASPARTATE AMINO TRANSFERASE 54 Units/L (15-37); BLOOD UREA NITROGEN 9 mg/dL (7-18); CALCIUM 9.2 mg/dL (8.5-10.1); CARBON DIOXIDE 29.5 mmol/L (21-32); CHLORIDE 101 mmol/L (98-107); COR CA(FOR HYPOALB) 10.6 mg/dL (8.5-10.1); COR NA(FOR HYPERGLY) 137 mmol/L (136-145); CREATININE 0.57 mg/dL (0.55-1.02); SODIUM 136 mmol/L (136-145); TOTAL PROTEIN 7.6 g/dL (6.4-8.2); eGFR NON BLACK RACES > 60 (>60)
[2021-06-18] MEDS: PULMICORT NEB TX 0.5 MG NEB SCH ×2 (08:56→20:20)
[2021-06-18] MEDS: AMARYL TAB 4 MG PO SCH ×3 (09:15→21:30)
[2021-06-18] MEDS: ASPIRIN EC 81 MG PO SCH (09:16)
[2021-06-18 09:51] LABS: ABG ALLEN TEST POS
[2021-06-18] MEDS: KEPPRA TAB 500 MG PO SCH ×2 (10:35→21:31)
[2021-06-18] MEDS: LEVAQUIN PREMIX IV 500 MG 500 MG/100 ML BAG IV SCH (10:35)
[2021-06-18] MEDS: LOVENOX INJ 40 MG SYR SC SCH (10:37)
[2021-06-18] MEDS: NEURONTIN TAB 600 MG PO SCH ×2 (10:38→21:31)
[2021-06-18] MEDS: PRAVACHOL PO SCH (10:39)
[2021-06-18] MEDS: QUESTRAN POWDER FOR ORAL SUSP PO SCH ×2 (10:40→21:31)
[2021-06-18] MEDS: TOPROL XL PO SCH ×2 (10:41→21:31)
--- NOTE | 2021-06-18 11:24 | PCM.PROG ---
Progress Note - Progress Note for Day of Date of Exam: 06/18/21 - Subjective Subjective: WAS ADMITTED FOR TREATMENT OF LLL PNEUMONIA AND COPD EXACERBATION. TODAY, SHE IS ALERT AND ORIENTED, SITTING UP ON MORNING ROUNDS. SHE APPEARS TO BE HAVING SOME RESPIRATORY DIFFICULTY THIS MORNING. PATIENT HAS LABORED BREATHING. SHE CONTINUES WITH COMPLAINTS OF SHORTNESS OF BREATH AND COUGH. COUGH HAS BEEN NON-PRODUCTIVE. ON EXAMINATION, HEART IS REGULAR IN RATE AND RHYTHM. BILATERAL LUNGS ARE NOTED WITH WHEEZING THROUGHOUT. ABDOMEN IS ROUND, SOFT, AND NON-TENDER WITH NORMAL BOWEL SOUNDS NOTED IN ALL QUADRANTS. HER VITALS THIS MORNING ARE: 100.1-106-32-95%-161/74. SHE HAS HAD FEVER THROUGHOUT THE NIGHT. LABS WERE OBTAINED. ABNORMAL LAB VALUES INCLUDE THE FOLLOWING: WBC 11.1, HGB 11.3, HCT 33.2, GLUCOSE 137, AST 54, ALBUMIN 2.3, GLOBULIN 5.3. BLOOD CULTURES ARE PENDING. CHEST XRAY WAS OBTAINED AND REVEALED: Unchanged near total opacification of the left dion thorax. SHE IS CURRENTLY RECEIVING FORTAZ 1G IV Q8H, LEVAQUIN 500MG IV X 1, SOLU-MEDROL 40MG IV Q8H, DUONEB Q4H, PULMICORT BID, MORPHINE 4MG IV Q4H PRN, OTBS ACHS, HUMULIN R SLIDING SCALE, AMITRIPTYLINE 25MG PO HS, AND HER HOME MEDICATONS WERE RESUMED. WE WILL CONTINUE WITH CURRENT PLAN OF CARE TODAY AND OBTAIN A CHEST CT. OTHERWISE, WE PLAN TO FOLLOW UP WITH AM LABS AND CHEST XRAY AND CONTINUE TO MONITOR. TIME SPENT ON CLINICAL ASSESSMENT, REVIEWING LABS AND IMAGING, DECISION MAKING, AND DOCUMENTATION GREATER THAN 45 MINUTES. - Past Medical Family Social History Past Med/Fam/Surg Hx: No changes since H&P Allergies: Allergies egg Allergy (Verified 06/15/21 03:36) shellfish derived Allergy (Verified 06/15/21 03:36) - Review of Systems ROS: No change since H&P - Vital Signs and I&O's Vital Signs: Temperature 100.1 F Pulse Rate [Right Brachial] 108 Pulse Rate [Left Brachial] 106 Pulse Rate 121 Respiratory Rate 32 Blood Pressure [Right Arm] 161/74 Blood Pressure [Left Arm] 157/76 Blood Pressure 192/116 O2 Sat by Pulse Oximetry 96 Intake and Output: Intake & Output 06/15/21 06/16/21 06/17/21 06/18/21 11:59 11:59 11:59 11:59 Intake Total 2050 / 2323 Balance 2050 - Physical Exam Oriented: Normal Eyes: Normal Ear: Normal Nose: Normal Throat: Normal Respiratory: Diminished, Wheezes Cardiovascular: Normal : Normal Auscultation: Bowel Sounds: Normal Tenderness: Normal Skin: Normal Musculoskeletal: Normal Psychiatric: Normal Mood Description: Calm Affect: Normal Speech Pattern: Clear, Appropriate - Laboratory and Diagnostics Result Diagrams: 06/18/21 05:12 06/18/21 05:12 Labs: 06/15/21 15:45 Blood Blood Culture - Preliminary 06/15/21 15:35 Blood Blood Culture - Preliminary Laboratory WBC 11.1 X10^3/uL (3.6-10.0) H 06/18/21 05:12 RBC 3.71 X10^6/uL (3.5-5.4) 06/18/21 05:12 Hgb 11.3 g/dL (12.0-16.0) L 06/18/21 05:12 Hct 33.2 % (36.0-47.0) L 06/18/21 05:12 MCV 89.4 fL (80.0-100.0) 06/18/21 05:12 MCH 30.3 pg (27.0-34.0) 06/18/21 05:12 MCHC 33.9 g/dL (33.0-35.0) 06/18/21 05:12 RDW 13.3 % (11.6-16.5) 06/18/21 05:12 Plt Count 217 X10^3/uL (150.0-450.0) 06/18/21 05:12 MPV 8.1 fL (7.4-11.0) 06/18/21 05:12 Neut % (Auto) 63.8 % (42.0-75.0) 06/18/21 05:12 Lymph % (Auto) 21.7 % (21.0-51.0) 06/18/21 05:12 [place] % (Auto) 12.6 % (0.0-13.0) 06/18/21 05:12 Eos % (Auto) 1.4 % (0.9-2.9) 06/18/21 05:12 Baso % (Auto) 0.5 % (0.2-1.0) 06/18/21 05:12 Neut # (Auto) 7.1 x10^3/uL (2.2-4.8) H 06/18/21 05:12 Lymph # (Auto) 2.4 X10^3/uL (1.3-2.9) 06/18/21 05:12 [place] # (Auto) 1.4 x10^3/uL (0.3-0.8) H 06/18/21 05:12 Eos # (Auto) 0.1 x10^3/uL (0.0-0.2) 06/18/21 05:12 Baso # (Auto) 0.1 X10^3/uL (0.0-0.1) 06/18/21 05:12 Absolute Nucleated RBC 0.1 /100WBC 06/18/21 05:12 Sample Site Lr 06/18/21 09:45 ABG pH 7.450 (7.35-7.45) 06/18/21 09:45 ABG pCO2 46.0 mmHg (35.0-45.0) H 06/18/21 09:45 ABG pO2 64.0 mmHg (80.0-100.0) L 06/18/21 09:45 ABG HCO3 32.0 mmol/L (22-26) H* 06/18/21 09:45 ABG O2 Saturation 93.0 % (90-100) 06/18/21 09:45 ABG Base Excess 7.0 mmol/L (-2.0-2.0) H 06/18/21 09:45 Randall Test Pos 06/18/21 09:45 A-a Gradient 107.0 mmHg 06/18/21 09:45 FiO2 32.0 06/18/21 09:45 Blood Gas Comments Pt zayra well. cdn 06/18/21 09:45 Sodium 136 mmol/L (136-145) 06/18/21 05:12 Corrected Sodium 137 mmol/L (136-145) 06/18/21 05:12 Potassium 4.1 mmol/L (3.5-5.1) 06/18/21 05:12 Chloride 101 mmol/L (98-107) 06/18/21 05:12 Carbon Dioxide 29.5 mmol/L (21-32) 06/18/21 05:12 BUN 9 mg/dL (7-18) 06/18/21 05:12 Creatinine 0.57 mg/dL (0.55-1.02) 06/18/21 05:12 Est GFR (MDRD) Af Amer > 60 (>60) 06/18/21 05:12 Est GFR (MDRD) Non-Af > 60 (>60) 06/18/21 05:12 Glucose 137 mg/dL (65-99) H 06/18/21 05:12 POC Glucose (mg/dL) 131 mg/dL (65-99) H 06/18/21 05:46 Calcium 9.2 mg/dL (8.5-10.1) 06/18/21 05:12 Corrected Calcium 10.6 mg/dL (8.5-10.1) H 06/18/21 05:12 Total Bilirubin 0.30 mg/dL (0.2-1.0) 06/18/21 05:12 AST 54 Units/L (15-37) H 06/18/21 05:12 ALT 27 Units/L (12-78) 06/18/21 05:12 Alkaline Phosphatase 95 Units/L (46-116) 06/18/21 05:12 Creatine Kinase 38 Units/L (26-192) 06/15/21 03:32 CK-MB (CK-2) < 1.0 ng/mL (0-4.0) 06/15/21 03:32 CK/CKMB % Calc 2.6 % (<4) 06/15/21 03:32 Troponin I < 0.02 ng/mL (0-1.5) 06/15/21 03:32 B-Natriuretic Peptide 17.2 pg/mL (0-79) 06/17/21 05:25 Total Protein 7.6 g/dL (6.4-8.2) 06/18/21 05:12 Albumin 2.3 g/dL (3.4-5.0) L 06/18/21 05:12 Globulin 5.3 g/dL (2.5-4.5) H 06/18/21 05:12 Albumin/Globulin Ratio 0.4 Ratio (1.1-2.1) L 06/18/21 05:12 SARS-CoV-2 (PCR) Negative (NEGATIVE) 06/15/21 03:38 Influenza Type A (PCR) Negative (NEGATIVE) 06/15/21 03:38 Influenza Type B (PCR) Negative (NEGATIVE) 06/15/21 03:38 RSV (PCR) Negative (NEGATIVE) 06/15/21 03:38 - Plan (1) LLL pneumonia Status: Acute Qualifiers: Pneumonia type: due to unspecified organism Qualified Code(s): J18.9 - Pneumonia, unspecified organism Plan: SUPPLEMENTAL OXYGEN, FORTAZ 1G IV Q8H, LEVAQUIN 500MG IV X 1, SOLU-MEDROL 40MG IV Q8H, DUONEB Q4H, PULMICORT BID, MORPHINE 4MG IV Q4H PRN, OTBS ACHS, HUMULIN R SLIDING SCALE, RESUME HOME MEDS (2) COPD (chronic obstructive pulmonary disease) Status: Acute Qualifiers: COPD type: COPD with acute exacerbation Qualified Code(s): J44.1 - Chronic obstructive pulmonary disease with (acute) exacerbation (3) Headache Status: Acute Qualifiers: Headache type: unspecified Headache chronicity pattern: chronic headache
--- NOTE | 2021-06-18 12:16 | CT ---
HISTORYSOB, CCC, abnormal chest x-raySTUDYCT chest without IV contrastCOMPARISONX-ray 06/18/2021TECHNIQUEMultiple axial images of the chest were obtained from the thoracic inlet to the upper abdomenwithout the administration of IV contrast. Sagittal and coronal reformations are performed. Dose reduction techniques including Automated Exposure Control (AEC) and adjustment of mA and kV were utilized.FINDINGSThere is a large left pleural effusion with associated atelectasis. Mild loculation superiorly and inferiorly is not excluded. There is mild mediastinal shift to the left associated with the atelectasis. Right lung is clear. No pneumothorax is seen.The heart and thoracic aorta are normal in size. A few tiny reactive mediastinal lymph nodes are seen. Prior cholecystectomy. [place], likely reactive lymph nodes are seen in the upper abdomen.IMPRESSIONLarge left pleural effusion and associated atelectasis. Etiology of the pleural effusion is uncertain.Electronically signed by: Isaac Whipple (Jun 18, 2021 12:13:13)
[2021-06-18] MEDS: LACOSAMIDE 100 MG PO SCH ×2 (14:20→22:10)
[2021-06-18] MEDS: TYLENOL 325 MG TAB PO PRN (15:00)
[2021-06-18] MEDS: NS 1,000 ML IV 1,000 ML IV SCH (19:19)
[2021-06-18] MEDS: SNACK - Diabetic Appropriate PO SCH (21:30)
[2021-06-18] MEDS: ELAVIL PO SCH (21:31)
[2021-06-18] MEDS: NovoLIN R (or HumuLIN R) SUBCUT PRN (22:12)
[2021-06-18] MEDS: ZANAFLEX PO PRN (22:12)
[2021-06-19] MEDS: DUONEB 0.5 MG/3 MG (3 mL) NEB SCH ×6 (00:15→21:25)
[2021-06-19] MEDS: DILANTIN CAP 100 MG EXT REL PO SCH ×3 (05:10→21:13)
[2021-06-19] MEDS: SOLU-Medrol 40 MG VIAL IVP SCH ×3 (05:11→21:12)
[2021-06-19] MEDS: FORTAZ or TAZICEF VIAL INJ 1 G in NS 100 ML IV + SPIKE MINIBAG* 100 ML IV SCH ×3 (05:11→21:12)
[2021-06-19] MEDS: REQUIP PO SCH ×3 (05:11→21:12)
--- NOTE | 2021-06-19 05:54 | RAD ---
PROCEDURE: Chest X-ray 1 View .HISTORY: Short of breath.TECHNIQUE: AP view .COMPARISON: 06/18/2021.TECHNICAL QUALITY: Satisfactory .FINDINGS:Improved aeration left apical region compared to previous study with continued large effusion and increased density left mid lower lung field with associated atelectasis.Right lung portillo clear.Unchanged cardio mediastinal silhouette and normal central vascularity.IMPRESSION:Improved aeration left apical region with continued large effusion and atelectasis left lung field.Electronically signed by: Oscar Ospina (Jun 19, 2021 05:52:41)
[2021-06-19 06:19] LABS: BASOPHILS # (AUTO) 0.1 X10^3/uL (0.0-0.1); BASOPHILS % (AUTO) 0.6 % (0.2-1.0); EOSINOPHILS # (AUTO) 0.2 x10^3/uL (0.0-0.2); EOSINOPHILS % (AUTO) 2.1 % (0.9-2.9); HEMATOCRIT 32.1 % (36.0-47.0); HEMOGLOBIN 10.9 g/dL (12.0-16.0); LYMPHOCYTES # (AUTO) 2.8 X10^3/uL (1.3-2.9); LYMPHOCYTES % (AUTO) 27.6 % (21.0-51.0); MEAN CORPUSCULAR HEMOGLOBIN 30.3 pg (27.0-34.0); MEAN CORPUSCULAR HGB CONC 33.8 g/dL (33.0-35.0); MEAN CORPUSCULAR VOLUME 89.5 fL (80.0-100.0); MEAN PLATELET VOLUME 7.8 fL (7.4-11.0); MONOCYTES # (AUTO) 1.1 x10^3/uL (0.3-0.8); NEUTROPHILS # (AUTO) 5.9 x10^3/uL (2.2-4.8); NEUTROPHILS % (AUTO) 58.7 % (42.0-75.0); PLATELET COUNT 232 X10^3/uL (150.0-450.0); RED BLOOD COUNT 3.59 X10^6/uL (3.5-5.4); RED CELL DISTRIBUTION WIDTH 13.3 % (11.6-16.5); WHITE BLOOD COUNT 10.1 X10^3/uL (3.6-10.0)
[2021-06-19 06:36] LABS: ALANINE AMINOTRANSFERASE 30 Units/L (12-78); ALBUMIN 2.1 g/dL (3.4-5.0); ALKALINE PHOSPHATASE 98 Units/L (46-116); ASPARTATE AMINO TRANSFERASE 34 Units/L (15-37); BLOOD UREA NITROGEN 9 mg/dL (7-18); CARBON DIOXIDE 31.3 mmol/L (21-32); CHLORIDE 101 mmol/L (98-107); COR CA(FOR HYPOALB) 10.5 mg/dL (8.5-10.1); CREATININE 0.59 mg/dL (0.55-1.02); SODIUM 137 mmol/L (136-145); TOTAL PROTEIN 7.4 g/dL (6.4-8.2); eGFR NON BLACK RACES > 60 (>60)
[2021-06-19] MEDS: PULMICORT NEB TX 0.5 MG NEB SCH ×2 (08:50→21:25)
[2021-06-19] MEDS: PRAVACHOL PO SCH (09:37)
[2021-06-19] MEDS: LEVAQUIN PREMIX IV 500 MG 500 MG/100 ML BAG IV SCH (09:37)
[2021-06-19] MEDS: TOPROL XL PO SCH ×2 (09:37→21:12)
[2021-06-19] MEDS: ASPIRIN EC 81 MG PO SCH (09:37)
[2021-06-19] MEDS: QUESTRAN POWDER FOR ORAL SUSP PO SCH ×2 (09:37→21:13)
[2021-06-19] MEDS: AMARYL TAB 4 MG PO SCH ×2 (09:37→21:12)
[2021-06-19] MEDS: LACOSAMIDE 100 MG PO SCH ×2 (09:38→21:13)
[2021-06-19] MEDS: NEURONTIN TAB 600 MG PO SCH ×2 (09:38→21:13)
[2021-06-19] MEDS: KEPPRA TAB 500 MG PO SCH ×2 (09:38→21:14)
[2021-06-19] MEDS: LOVENOX INJ 40 MG SYR SC SCH (09:43)
[2021-06-19] MEDS: NovoLIN R (or HumuLIN R) SUBCUT PRN (12:01)
[2021-06-19] MEDS: NS 1,000 ML IV 1,000 ML IV SCH (17:07)
--- NOTE | 2021-06-19 18:21 | PCM.PROG ---
Progress Note Progress Note for Day of Date of Exam: 06/19/21 Subjective Subjective: Patient seen at bedside, no events overnight. Patient is doing well, currently on 2L NC. She is in no respiratory distress. She is currently being treated for COPD exacerbation and pneumonia. She had CT chest done yesterdya which showed a large left pleural effusion and left sided pneumonia. She does not use O2 at home. Denies hx of CAD or CHF. Labs/imaging reviewed Plan: will order ECHO to assess LV function. Continue IV Fortaz, Solumedrol and nebs. Home O2 eval. Continue IS. Wean O2 as tolerated. Monitor AM labs/imaging. Past Medical Family Social History Past Med/Fam/Surg Hx: No changes since H&P Allergies: Allergies egg Allergy (Verified 06/15/21 03:36) shellfish derived Allergy (Verified 06/15/21 03:36) Review of Systems ROS: No change since H&P Vital Signs and I&O's Vital Signs: Temperature 97.7 F Pulse Rate [Right Brachial] 104 Pulse Rate [Left Brachial] 111 Pulse Rate 106 Respiratory Rate 18 Blood Pressure [Right Arm] 146/70 Blood Pressure [Left Arm] 157/76 Blood Pressure 192/116 O2 Sat by Pulse Oximetry 99 Intake and Output: Intake & Output 06/16/21 06/17/21 06/18/21 06/19/21 23:59 23:59 23:59 23:59 Intake Total 2052 / 2133 2099 / 2099 2420 / 2420 Output Total 0 / 0 Balance 2052 2420 / 2420 Physical Exam Oriented: Normal Eyes: Normal Ear: Normal Nose: Normal Throat: Normal Respiratory: Generalized and Diminished Cardiovascular: Normal Auscultation: Bowel Sounds: Normal Tenderness: Normal Skin: Normal Musculoskeletal: Normal Psychiatric: Normal Mood Description: Calm Affect: Normal Speech Pattern: Clear and Appropriate Laboratory and Diagnostics Result Diagrams: 06/19/21 05:31 06/19/21 05:31 Labs: 06/15/21 15:45 Blood Blood Culture - Preliminary 06/15/21 15:35 Blood Blood Culture - Preliminary Laboratory WBC 10.1 X10^3/uL (3.6-10.0) H 06/19/21 05:31 RBC 3.59 X10^6/uL (3.5-5.4) 06/19/21 05:31 Hgb 10.9 g/dL (12.0-16.0) L 06/19/21 05:31 Hct 32.1 % (36.0-47.0) L 06/19/21 05:31 MCV 89.5 fL (80.0-100.0) 06/19/21 05:31 MCH 30.3 pg (27.0-34.0) 06/19/21 05:31 MCHC 33.8 g/dL (33.0-35.0) 06/19/21 05:31 RDW 13.3 % (11.6-16.5) 06/19/21 05:31 Plt Count 232 X10^3/uL (150.0-450.0) 06/19/21 05:31 MPV 7.8 fL (7.4-11.0) 06/19/21 05:31 Neut % (Auto) 58.7 % (42.0-75.0) 06/19/21 05:31 Lymph % (Auto) 27.6 % (21.0-51.0) 06/19/21 05:31 [place] % (Auto) 11.0 % (0.0-13.0) 06/19/21 05:31 Eos % (Auto) 2.1 % (0.9-2.9) 06/19/21 05:31 Baso % (Auto) 0.6 % (0.2-1.0) 06/19/21 05:31 Neut # (Auto) 5.9 x10^3/uL (2.2-4.8) H 06/19/21 05:31 Lymph # (Auto) 2.8 X10^3/uL (1.3-2.9) 06/19/21 05:31 [place] # (Auto) 1.1 x10^3/uL (0.3-0.8) H 06/19/21 05:31 Eos # (Auto) 0.2 x10^3/uL (0.0-0.2) 06/19/21 05:31 Baso # (Auto) 0.1 X10^3/uL (0.0-0.1) 06/19/21 05:31 Absolute Nucleated RBC 0.0 /100WBC 06/19/21 05:31 Sample Site Lr 06/18/21 09:45 ABG pH 7.450 (7.35-7.45) 06/18/21 09:45 ABG pCO2 46.0 mmHg (35.0-45.0) H 06/18/21 09:45 ABG pO2 64.0 mmHg (80.0-100.0) L 06/18/21 09:45 ABG HCO3 32.0 mmol/L (22-26) H* 06/18/21 09:45 ABG O2 Saturation 93.0 % (90-100) 06/18/21 09:45 ABG Base Excess 7.0 mmol/L (-2.0-2.0) H 06/18/21 09:45 Randlal Test Pos 06/18/21 09:45 A-a Gradient 107.0 mmHg 06/18/21 09:45 FiO2 32.0 06/18/21 09:45 Blood Gas Comments Pt zayra well. cdn 06/18/21 09:45 Sodium 137 mmol/L (136-145) 06/19/21 05:31 Corrected Sodium TNP 06/19/21 05:31 Potassium 3.7 mmol/L (3.5-5.1) 06/19/21 05:31 Chloride 101 mmol/L (98-107) 06/19/21 05:31 Carbon Dioxide 31.3 mmol/L (21-32) 06/19/21 05:31 BUN 9 mg/dL (7-18) 06/19/21 05:31 Creatinine 0.59 mg/dL (0.55-1.02) 06/19/21 05:31 Est GFR (MDRD) Af Amer > 60 (>60) 06/19/21 05:31 Est GFR (MDRD) Non-Af > 60 (>60) 06/19/21 05:31 Glucose 94 mg/dL (65-99) 06/19/21 05:31 POC Glucose (mg/dL) 118 mg/dL (65-99) H 06/19/21 16:41 Calcium 9.0 mg/dL (8.5-10.1) 06/19/21 05:31 Corrected Calcium 10.5 mg/dL (8.5-10.1) H 06/19/21 05:31 Total Bilirubin 0.20 mg/dL (0.2-1.0) 06/19/21 05:31 AST 34 Units/L (15-37) 06/19/21 05:31 ALT 30 Units/L (12-78) 06/19/21 05:31 Alkaline Phosphatase 98 Units/L (46-116) 06/19/21 05:31 Creatine Kinase 38 Units/L (26-192) 06/15/21 03:32 CK-MB (CK-2) < 1.0 ng/mL (0-4.0) 06/15/21 03:32 CK/CKMB % Calc 2.6 % (<4) 06/15/21 03:32 Troponin I < 0.02 ng/mL (0-1.5) 06/15/21 03:32 B-Natriuretic Peptide 17.2 pg/mL (0-79) 06/17/21 05:25 Total Protein 7.4 g/dL (6.4-8.2) 06/19/21 05:31 Albumin 2.1 g/dL (3.4-5.0) L 06/19/21 05:31 Globulin 5.3 g/dL (2.5-4.5) H 06/19/21 05:31 Albumin/Globulin Ratio 0.4 Ratio (1.1-2.1) L 06/19/21 05:31 SARS-CoV-2 (PCR) Negative (NEGATIVE) 06/18/21 16:30 Influenza Type A (PCR) Negative (NEGATIVE) 06/18/21 16:30 Influenza Type B (PCR) Negative (NEGATIVE) 06/18/21 16:30 RSV (PCR) Negative (NEGATIVE) 06/18/21 16:30 SARS-CoV-2 Antigen Presumptive negative (NEGATIVE) 06/18/21 17:30 Plan (1) COPD exacerbation: Status: Acute (2) LLL pneumonia: Status: Acute Qualifiers: Pneumonia type: due to unspecified organism Qualified Code(s): J18.9 - Pneumonia, unspecified organism (3) Pleural effusion, left: Status: Acute (4) Acute respiratory failure with hypoxia: Status: Acute
[2021-06-19] MEDS: SNACK - Diabetic Appropriate PO SCH (21:11)
[2021-06-19] MEDS: ELAVIL PO SCH (21:12)
[2021-06-19] MEDS: ZANAFLEX PO PRN (21:14)
[2021-06-20] MEDS: DUONEB 0.5 MG/3 MG (3 mL) NEB SCH ×3 (00:31→09:15)
[2021-06-20] MEDS: SOLU-Medrol 40 MG VIAL IVP SCH (06:01)
[2021-06-20] MEDS: REQUIP PO SCH (06:01)
[2021-06-20] MEDS: DILANTIN CAP 100 MG EXT REL PO SCH (06:01)
[2021-06-20] MEDS: FORTAZ or TAZICEF VIAL INJ 1 G in NS 100 ML IV + SPIKE MINIBAG* 100 ML IV SCH (06:01)
[2021-06-20 06:13] LABS: BASOPHILS # (AUTO) 0.1 X10^3/uL (0.0-0.1); BASOPHILS % (AUTO) 1.1 % (0.2-1.0); EOSINOPHILS # (AUTO) 0.2 x10^3/uL (0.0-0.2); EOSINOPHILS % (AUTO) 1.4 % (0.9-2.9); HEMATOCRIT 33.1 % (36.0-47.0); HEMOGLOBIN 11.2 g/dL (12.0-16.0); LYMPHOCYTES # (AUTO) 3.3 X10^3/uL (1.3-2.9); LYMPHOCYTES % (AUTO) 28.1 % (21.0-51.0); MEAN CORPUSCULAR HEMOGLOBIN 30.2 pg (27.0-34.0); MEAN CORPUSCULAR VOLUME 88.8 fL (80.0-100.0); MEAN PLATELET VOLUME 7.3 fL (7.4-11.0); MONOCYTES # (AUTO) 1.1 x10^3/uL (0.3-0.8); MONOCYTES % (AUTO) 9.2 % (0.0-13.0); NEUTROPHILS # (AUTO) 7.2 x10^3/uL (2.2-4.8); NEUTROPHILS % (AUTO) 60.2 % (42.0-75.0); PLATELET COUNT 273 X10^3/uL (150.0-450.0); RED BLOOD COUNT 3.73 X10^6/uL (3.5-5.4); RED CELL DISTRIBUTION WIDTH 13.1 % (11.6-16.5); WHITE BLOOD COUNT 11.9 X10^3/uL (3.6-10.0)
[2021-06-20 06:28] LABS: ALANINE AMINOTRANSFERASE 37 Units/L (12-78); ALBUMIN 2.3 g/dL (3.4-5.0); ALKALINE PHOSPHATASE 107 Units/L (46-116); ASPARTATE AMINO TRANSFERASE 49 Units/L (15-37); BLOOD UREA NITROGEN 8 mg/dL (7-18); CALCIUM 9.3 mg/dL (8.5-10.1); CARBON DIOXIDE 28.7 mmol/L (21-32); CHLORIDE 101 mmol/L (98-107); COR CA(FOR HYPOALB) 10.7 mg/dL (8.5-10.1); CREATININE 0.56 mg/dL (0.55-1.02); SODIUM 138 mmol/L (136-145); TOTAL PROTEIN 7.8 g/dL (6.4-8.2); eGFR NON BLACK RACES > 60 (>60)
--- NOTE | 2021-06-20 06:31 | RAD ---
CHEST, 1 VIEWHISTORY: SOBStudy: Single view of the chest.Comparison:06/19/2021Findings:The cardiomediastinal silhouette is normal. Minimal decrease in size of loculated left effusion. Osseous structures demonstrate no acute abnormality.IMPRESSION:1. Minimal decrease in size of left-sided loculated effusion.Electronically signed by: MONY BUNEO (Jun 20, 2021 06:29:41)
[2021-06-20] MEDS: LOVENOX INJ 40 MG SYR SC SCH (08:46)
[2021-06-20] MEDS: LEVAQUIN PREMIX IV 500 MG 500 MG/100 ML BAG IV SCH (08:46)
[2021-06-20] MEDS: NEURONTIN TAB 600 MG PO SCH (08:47)
[2021-06-20] MEDS: PRAVACHOL PO SCH (08:47)
[2021-06-20] MEDS: ASPIRIN EC 81 MG PO SCH (08:47)
[2021-06-20] MEDS: AMARYL TAB 4 MG PO SCH (08:47)
[2021-06-20] MEDS: KEPPRA TAB 500 MG PO SCH (08:48)
[2021-06-20] MEDS: TOPROL XL PO SCH (08:52)
[2021-06-20] MEDS: PULMICORT NEB TX 0.5 MG NEB SCH (09:15)
--- NOTE | 2021-06-20 10:19 | W.DIS.FURT ---
Summary of Discharge Discharge Summary of Date Date of Exam: 06/20/21 Admission Date Date of Admission: 06/15/21 Admission Diagnosis Patient Problems (Updated 06/29/21 @ 14:25 by Amaya Boyer) LLL pneumonia (Acute) J18.9 COPD (chronic obstructive pulmonary disease) (Chronic) J44.9 Headache (Chronic) R51.9 Hospital Course: Ms Gonzales is a 56y/o female with a PMH of COPD, DM, HTN and HLD presented with worsening SOB, cough, fever and chest pain. She also admits to choking on a pecan 2 days ago. On admission, she was noted to have elevated WBC. ABG showed hypoxia. COVID, flu and RSV were negative. CXR showed possible pneumonia left base. She was started on IV antibiotics, nebs and solumedrol. She was admitted for LLL pneumonia and COPD exacerbation. Patient was initially on 3L NC, weaned down to 2L. Her labs were monitored daily, electrolytes replaced as needed. CT- chest showed large left effusion with associated atelectasis. ECHO was also done which showed EF 64% with normal global wall motion, mild PH. Patient was in no respiratory distress and qualified for home oxygen. She was stable for discharge on PO antibiotics and steroids. She will follow up with PCP as scheduled. Vital Signs: Vital Signs (72 hours) 06/17/21 12:00 06/17/21 13:54 06/17/21 14:54 Temperature 99.7 F H Pulse Rate Pulse Rate [Left Brachial] 115 H Pulse Rate [Right Brachial] Respiratory Rate 36 H 28 H 26 H Blood Pressure Blood Pressure [Left Arm] Blood Pressure [Right Arm] 168/81 O2 Sat by Pulse Oximetry 95 06/17/21 16:00 06/17/21 20:00 06/17/21 20:07 Temperature 98.8 F 99.0 F Pulse Rate 118 H Pulse Rate [Left Brachial] 109 H 111 H Pulse Rate [Right Brachial] Respiratory Rate 26 H 24 Blood Pressure Blood Pressure [Left Arm] Blood Pressure [Right Arm] 135/62 169/82 O2 Sat by Pulse Oximetry 91 L 92 L 95 06/17/21 23:56 06/18/21 00:53 06/18/21 04:00 Temperature 98.6 F 98.5 F Pulse Rate 105 H Pulse Rate [Left Brachial] 100 H 89 Pulse Rate [Right Brachial] Respiratory Rate 20 21 Blood Pressure Blood Pressure [Left Arm] Blood Pressure [Right Arm] 112/59 131/80 O2 Sat by Pulse Oximetry 96 95 97 06/18/21 08:00 06/18/21 08:54 06/18/21 12:40 Temperature 100.1 F H Pulse Rate 121 H 96 H Pulse Rate [Left Brachial] 106 H Pulse Rate [Right Brachial] Respiratory Rate 32 H Blood Pressure Blood Pressure [Left Arm] Blood Pressure [Right Arm] 161/74 O2 Sat by Pulse Oximetry 95 96 96 06/18/21 15:00 06/18/21 16:00 06/18/21 16:45 Temperature 100.2 F H Pulse Rate 70 Pulse Rate [Left Brachial] 111 H Pulse Rate [Right Brachial] Respiratory Rate 28 H 28 H Blood Pressure Blood Pressure [Left Arm] Blood Pressure [Right Arm] 141/82 O2 Sat by Pulse Oximetry 93 L 99 06/18/21 20:00 06/18/21 20:20 06/19/21 00:00 Temperature 99.0 F 98.7 F Pulse Rate 105 H Pulse Rate [Left Brachial] Pulse Rate [Right Brachial] 111 H 94 H Respiratory Rate 25 H 20 Blood Pressure Blood Pressure [Left Arm] Blood Pressure [Right Arm] 167/80 121/57 O2 Sat by Pulse Oximetry 93 L 95 93 L 06/19/21 03:52 06/19/21 08:00 06/19/21 08:50 Temperature 98.7 F 98.8 F Pulse Rate 87 Pulse Rate [Left Brachial] Pulse Rate [Right Brachial] 88 100 H Respiratory Rate 21 22 Blood Pressure Blood Pressure [Left Arm] Blood Pressure [Right Arm] 129/59 141/82 O2 Sat by Pulse Oximetry 96 92 L 96 06/19/21 10:38 06/19/21 12:00 06/19/21 12:55 Temperature 99.1 F Pulse Rate 87 90 Pulse Rate [Left Brachial] Pulse Rate [Right Brachial] 96 H Respiratory Rate 20 20 Blood Pressure 192/116 Blood Pressure [Left Arm] Blood Pressure [Right Arm] 160/75 O2 Sat by Pulse Oximetry 93 L 95 99 06/19/21 16:00 06/19/21 16:40 06/19/21 20:00 Temperature 97.7 F 99.3 F Pulse Rate 106 H Pulse Rate [Left Brachial] Pulse Rate [Right Brachial] 104 H 101 H Respiratory Rate 18 20 Blood Pressure Blood Pressure [Left Arm] Blood Pressure [Right Arm] 146/70 142/81 O2 Sat by Pulse Oximetry 96 99 95 06/19/21 21:26 06/20/21 00:00 06/20/21 04:00 Temperature 99.6 F 98.1 F Pulse Rate Pulse Rate [Left Brachial] Pulse Rate [Right Brachial] 84 90 Respiratory Rate 20 20 Blood Pressure Blood Pressure [Left Arm] 135/79 Blood Pressure [Right Arm] 137/68 O2 Sat by Pulse Oximetry 96 95 97 06/20/21 09:15 Temperature Pulse Rate 88 Pulse Rate [Left Brachial] Pulse Rate [Right Brachial] Respiratory Rate Blood Pressure Blood Pressure [Left Arm] Blood Pressure [Right Arm] O2 Sat by Pulse Oximetry 94 L Labs: Laboratory Last Values WBC 11.9 X10^3/uL (3.6-10.0) H 06/20/21 05:58 RBC 3.73 X10^6/uL (3.5-5.4) 06/20/21 05:58 Hgb 11.2 g/dL (12.0-16.0) L 06/20/21 05:58 Hct 33.1 % (36.0-47.0) L 06/20/21 05:58 MCV 88.8 fL (80.0-100.0) 06/20/21 05:58 MCH 30.2 pg (27.0-34.0) 06/20/21 05:58 MCHC 34.0 g/dL (33.0-35.0) 06/20/21 05:58 RDW 13.1 % (11.6-16.5) 06/20/21 05:58 Plt Count 273 X10^3/uL (150.0-450.0) 06/20/21 05:58 MPV 7.3 fL (7.4-11.0) L 06/20/21 05:58 Neut % (Auto) 60.2 % (42.0-75.0) 06/20/21 05:58 Lymph % (Auto) 28.1 % (21.0-51.0) 06/20/21 05:58 [place] % (Auto) 9.2 % (0.0-13.0) 06/20/21 05:58 Eos % (Auto) 1.4 % (0.9-2.9) 06/20/21 05:58 Baso % (Auto) 1.1 % (0.2-1.0) H 06/20/21 05:58 Neut # (Auto) 7.2 x10^3/uL (2.2-4.8) H 06/20/21 05:58 Lymph # (Auto) 3.3 X10^3/uL (1.3-2.9) H 06/20/21 05:58 [place] # (Auto) 1.1 x10^3/uL (0.3-0.8) H 06/20/21 05:58 Eos # (Auto) 0.2 x10^3/uL (0.0-0.2) 06/20/21 05:58 Baso # (Auto) 0.1 X10^3/uL (0.0-0.1) 06/20/21 05:58 Absolute Nucleated RBC 0.2 /100WBC 06/20/21 05:58 Sample Site Lr 06/18/21 09:45 ABG pH 7.450 (7.35-7.45) 06/18/21 09:45 ABG pCO2 46.0 mmHg (35.0-45.0) H 06/18/21 09:45 ABG pO2 64.0 mmHg (80.0-100.0) L 06/18/21 09:45 ABG HCO3 32.0 mmol/L (22-26) H* 06/18/21 09:45 ABG O2 Saturation 93.0 % (90-100) 06/18/21 09:45 ABG Base Excess 7.0 mmol/L (-2.0-2.0) H 06/18/21 09:45 Randall Test Pos 06/18/21 09:45 A-a Gradient 107.0 mmHg 06/18/21 09:45 FiO2 32.0 06/18/21 09:45 Blood Gas Comments Pt zayra well. cdn 06/18/21 09:45 Sodium 138 mmol/L (136-145) 06/20/21 05:58 Corrected Sodium TNP 06/20/21 05:58 Potassium 3.9 mmol/L (3.5-5.1) 06/20/21 05:58 Chloride 101 mmol/L (98-107) 06/20/21 05:58 Carbon Dioxide 28.7 mmol/L (21-32) 06/20/21 05:58 BUN 8 mg/dL (7-18) 06/20/21 05:58 Creatinine 0.56 mg/dL (0.55-1.02) 06/20/21 05:58 Est GFR (MDRD) Af Amer > 60 (>60) 06/20/21 05:58 Est GFR (MDRD) Non-Af > 60 (>60) 06/20/21 05:58 Glucose 82 mg/dL (65-99) 06/20/21 05:58 POC Glucose (mg/dL) 85 mg/dL (65-99) 06/20/21 05:36 Calcium 9.3 mg/dL (8.5-10.1) 06/20/21 05:58 Corrected Calcium 10.7 mg/dL (8.5-10.1) H 06/20/21 05:58 Total Bilirubin 0.20 mg/dL (0.2-1.0) 06/20/21 05:58 AST 49 Units/L (15-37) H 06/20/21 05:58 ALT 37 Units/L (12-78) 06/20/21 05:58 Alkaline Phosphatase 107 Units/L (46-116) 06/20/21 05:58 Creatine Kinase 38 Units/L (26-192) 06/15/21 03:32 CK-MB (CK-2) < 1.0 ng/mL (0-4.0) 06/15/21 03:32 CK/CKMB % Calc 2.6 % (<4) 06/15/21 03:32 Troponin I < 0.02 ng/mL (0-1.5) 06/15/21 03:32 B-Natriuretic Peptide 17.2 pg/mL (0-79) 06/17/21 05:25 Total Protein 7.8 g/dL (6.4-8.2) 06/20/21 05:58 Albumin 2.3 g/dL (3.4-5.0) L 06/20/21 05:58 Globulin 5.5 g/dL (2.5-4.5) H 06/20/21 05:58 Albumin/Globulin Ratio 0.4 Ratio (1.1-2.1) L 06/20/21 05:58 SARS-CoV-2 (PCR) Negative (NEGATIVE) 06/18/21 16:30 Influenza Type A (PCR) Negative (NEGATIVE) 06/18/21 16:30 Influenza Type B (PCR) Negative (NEGATIVE) 06/18/21 16:30 RSV (PCR) Negative (NEGATIVE) 06/18/21 16:30 SARS-CoV-2 Antigen Presumptive negative (NEGATIVE) 06/18/21 17:30 Reason For Visit: PNEUMONIA, COPD, FEVER, SHORTNESS OF BREATH Discharge Date Discharge Date: 06/20/21 Discharge Diagnosis All Active Problems (Updated 06/29/21 @ 14:25 by Amaya Boyer) COPD exacerbation (Acute) Acute respiratory failure with hypoxia (Acute) Pleural effusion, left (Acute) LLL pneumonia (Acute) COPD (chronic obstructive pulmonary disease) (Chronic) Headache (Chronic) Plan of Treatment: Continue with present treatment and follow up plan. Pt is to keep follow up appointment as instructed and take medications as ordered. Discharge Medications Discharge Medications: egg Allergy (Verified 06/15/21 03:36) shellfish derived Allergy (Verified 06/15/21 03:36) CONTINUE taking the following medications Cholestyramine Light 4 ea PO BID 06/15/21 [History] Levemir U-100 Insulin 45 unit SUBCUT PRN PRN 06/15/21 [History] Trulicity 1.5 mg SUBCUT QWEEK 06/15/21 [History] Vimpat 100 mg PO BID 06/15/21 [History] aspirin 81 mg PO DAILY 06/15/21 [History] gabapentin 600 mg PO BID 06/15/21 [History] glimepiride 4 mg PO BID 06/15/21 [History] levetiracetam 1,000 mg PO BID 06/15/21 [History] metoprolol succinate 50 mg PO BID 06/15/21 [History] nitroglycerin 0.3 mg SUBLINGUAL PRN PRN 06/15/21 [History] phenytoin sodium extended 100 mg PO TID 06/15/21 [History] pravastatin 20 mg PO DAILY 06/15/21 [History] ropinirole 0.25 mg PO TID 06/15/21 [History] tizanidine 4 mg PO TID 06/15/21 [History] New Prescriptions albuterol sulfate 2 puff INHALATION Q4-6H PRN #6.7 g 06/20/21 [Rx] ipratropium-albuterol 3 ml NEB Q4RESP 10 Days #30 each 06/20/21 [Rx] levofloxacin 750 mg PO DAILY 5 Days #5 tab 06/20/21 [Rx] nebulizers #1 ea 06/20/21 [Rx] prednisone 40 mg PO DAILY 5 Days #10 tab 06/20/21 [Rx] Follow up and Referral Follow Up: 1 Week (PCP) Discharge Disposition Discharge Disposition: Home Discharge Condition: Stable Discharge Plan Discharge Plan Hospital Course: Ms Gonzales is a 56y/o female with a PMH of COPD, DM, HTN and HLD presented with worsening SOB, cough, fever and chest pain. She also admits to choking on a pecan 2 days ago. On admission, she was noted to have elevated WBC. ABG showed hypoxia. COVID, flu and RSV were negative. CXR showed possible pneumonia left base. She was started on IV antibiotics, nebs and solumedrol. She was admitted for LLL pneumonia and COPD exacerbation. Patient was initially on 3L NC, weaned down to 2L. Her labs were monitored daily, electrolytes replaced as needed. CT- chest showed large left effusion with associated atelectasis. ECHO was also done which showed EF 64% with normal global wall motion, mild PH. Patient was in no respiratory distress and qualified for home oxygen. She was stable for discharge on PO antibiotics and steroids. She will follow up with PCP as scheduled. Patient Disposition: HOME, SELF-CARE Condition: Stable Health Concerns: Post Hospitalization: new medications and changes needed to prevent readmission or further decline. Pt educated and given instructions on all concerns. Care Plan Goals: Problem: Respiratory Complications Goal: Improved Uncomplicated Respiratory Status Instructions: Follow provided instructions. Follow up with primary physician as directed. Contact primary care physician or report to the closest Emergency Room if condition worsens. Plan of Treatment: Continue with present treatment and follow up plan. Pt is to keep follow up appointment as instructed and take medications as ordered. Prescription drug monitoring program results: PDMP reviewed and no concerns identified Prescriptions: New ipratropium-albuterol 0.5 mg-3 mg(2.5 mg base)/3 mL Solution For Nebulization 3 ml NEB Q4RESP 10 Days Qty: 30 RF: 0 albuterol sulfate 90 mcg/actuation HFA aerosol inhaler 2 puff inhalation Q4-6H PRN (Reason: shortness of breath or wheezing) Qty: 6.7 RF: 1 (DME) nebulizers Misc See Rx Instructions .ROUTE .MEDSUPPLY Qty: 1 RF: 0 Continued gabapentin 600 mg Tablet 600 mg PO BID RF: 0 nitroglycerin 0.3 mg Tablet, Sublingual 0.3 mg sublingual PRN PRNRF: 0 tizanidine 4 mg Tablet 4 mg PO TID RF: 0 metoprolol succinate 50 mg Tablet Extended Release 24 Hr 50 mg PO BID RF: 0 phenytoin sodium extended 100 mg Capsule 100 mg PO TID RF: 0 aspirin 81 mg Tablet,Delayed Release (Dr/Ec) 81 mg PO DAILY RF: 0 ropinirole 0.25 mg Tablet 0.25 mg PO TID RF: 0 glimepiride 4 mg Tablet 4 mg PO BID RF: 0 pravastatin 20 mg Tablet 20 mg PO DAILY RF: 0 Levemir U-100 Insulin 100 unit/mL Solution 45 unit SUBCUT PRN PRNRF: 0 levetiracetam 1,000 mg Tablet 1,000 mg PO BID RF: 0 Cholestyramine Light 4 gram Powder 4 ea PO BID RF: 0 Vimpat 100 mg Tablet 100 mg PO BID RF: 0 Trulicity 1.5 mg/0.5 mL Pen Injector 1.5 mg SUBCUT QWEEK RF: 0 Follow ups/Referrals Follow ups/Referrals: Raquel Mccartney [Other] - 06/25/21 1:00 pm Instructions Instructions: Shortness of Breath, Adult, [id number], Diabetes Mellitus and Sick Day Management, Home Oxygen Use, Adult, Fever, Adult, Chronic Obstructive Pulmonary Disease Exacerbation, [id number], How to Use a Nebulizer, Adult, Hypertension, Adult, [id number], Community-Acquired Pneumonia, Adult, [id number] Stand Alone Forms: Precautions for COVID19, [facility], Patient Portal, Social Distancing
[2021-06-20 10:33] VITALS: BP 176/89
[2021-06-20] MEDS: LACOSAMIDE 100 MG PO SCH (11:06)
[2021-06-20] MEDS: QUESTRAN POWDER FOR ORAL SUSP PO SCH (11:07)
== END 2021-06-20 11:55 | disposition home or self-care (01) | DRG 193 ==
LOC: ER 02:42 → MED/SURG 02:42
PROVIDERS: ADMIT Internal Medicine; ATTEND Internal Medicine
DX: R51.9 Headache, unspecified; I87.2 Venous insufficiency (chronic) (peripheral); E78.2 Mixed hyperlipidemia; J44.1 Chronic obstructive pulmonary disease with (acute) exacerbation; B37.0 Candidal stomatitis; Z20.822 Contact with and (suspected) exposure to COVID-19; I10 Essential (primary) hypertension; R07.89 Other chest pain; J90 Pleural effusion, not elsewhere classified; J18.8 Other pneumonia, unspecified organism; J96.01 Acute respiratory failure with hypoxia